=== PATIENT | male | born 1965 | race Caucasian/White ===

== ENCOUNTER 2021-11-11 09:48 | Emergency (ER) | payer OTHER, SELFPAY ==
--- NOTE | ~2021-11-11 | XR_ITS ---
EXAMINATION: XR ankle LT min 3V DATE: 11/11/2021 10:22 INDICATION: Medial sided pain and swelling at the left ankle TECHNIQUE: Anteroposterior, oblique, mortise, and lateral views of the left ankle were obtained. COMPARISON: None. FINDINGS: Alignment is normal. No fracture. Mild osteoarthritis. With mild nonuniform joint space narrowing at the right ankle. Achilles and plantar calcaneal spurs and small amount of enthesopathic ossification at the distal Achilles tendon. Small erosion with corticated margins at the tip of the lateral malleo christopher. Soft tissues are unremarkable with no evident ankle joint effusion. IMPRESSION: 1. Mild osteoarthritis at the left ankle. No acute osseous abnormality. 2. Enthesopathy at the calcaneal insertions of the Achilles tendon and plantar aponeurosis. 2. Small chronic nonspecific erosion with corticated margins at the tip of the lateral malleolus. Reviewed, dictated and finalized at location A.
[2021-11-11 10:07] VITALS: BP 149/87; PULSE 85; RESP 20; TEMP 36.6; O2SAT 95
--- NOTE | 2021-11-11 10:56 | ED.LOWEXIN ---
HPI - Extremity Injury (Lower) General Chief Complaint: Extremity Injury, Lower Stated Complaint: L foot pain Time Seen by Provider: 11/11/21 10:37 Source: patient Mode of arrival: ambulatory Limitations: no limitations History of Present Illness HPI Narrative: 56-year-old male presents today with complaints of left ankle pain that started after a birdbath fell on it yesterday. Abrasion noted to right lateral ankle. Patient with full range of motion. Patient able to bear weight. Patient noticed some numbness this morning while he had his boots on which is what prompted him to come in today. Related Data Allergies Allergy/AdvReac Type Severity Reaction Status Date / Time No Known Allergies Allergy Unknown Verified 03/05/19 23:03 Review of Systems Review of Systems: CONSTITUTIONAL: Denies fever, chills, or sweats. EYES: Denies visual changes, redness, or discharge. ENT: Denies rhinorrhea, congestion, sore throat, or otalgia. CARDIOVASCULAR: Denies chest pain, palpitations, or edema. RESPIRATORY: Denies cough or dyspnea. GASTROINTESTINAL: Denies abdominal pain, nausea, vomiting, or diarrhea. GENITOURINARY: Denies dysuria or hematuria. SKIN: Denies rash or itching. MUSCULOSKELETAL: Left ankle pain with some numbness and tingling this morning with boots on. Denies back pain or myalgia. NEUROLOGIC: Denies headache, numbness, dizziness, or weakness. PSYCHIATRIC: Denies anxiety or depression. Exam Narrative: GENERAL: Well-appearing, well-nourished, and in no acute distress. HEAD: Normocephalic, atraumatic. EYES: PERRLA and EOMI. ENT: Nares clear, no rhinorrhea or epistaxis. Mucous membranes moist. Oropharynx without tonsillar hypertrophy exudate or other lesions. Bilateral TMs pearly madden nonbulging NECK: Supple. No adenopathy or masses. No carotid bruits or JVD CHEST: Clear to auscultation. No respiratory distress. No wheezes rales or rhonchi HEART: Regular rate and rhythm. No murmur heard. Normal peripheral pulses. ABDOMEN: Soft, nontender, nondistended, normal active bowel sounds. EXTREMITIES: Left lateral ankle abrasion with tenderness to palpation. Patient with full range of motion. No laxity noted. No edema. SKIN: Warm, dry, no rash. NEURO: No focal deficits. Alert and oriented x3. PSYCH: Normal mood and affect. Course Vital Signs Vital signs: Vital Signs Temperature 36.6 C 11/11/21 10:07 Pulse Rate 85 11/11/21 10:07 Respiratory Rate 20 11/11/21 10:07 Blood Pressure 149/87 H 11/11/21 10:07 Pulse Oximetry 95 11/11/21 10:07 Oxygen Delivery Room Air 11/11/21 10:07 Temperature 36.6 C 11/11/21 10:07 Pulse Rate 85 11/11/21 10:07 Respiratory Rate 20 11/11/21 10:07 Blood Pressure 149/87 H 11/11/21 10:07 Pulse Oximetry 95 11/11/21 10:07 Oxygen Delivery Room Air 11/11/21 10:07 MDM - Extremity Injury (Lower) Differential Diagnosis Differential diagnosis: Likely ankle sprain and strain and ankle fracture Medical Records Attestation: I reviewed the patient's medical records. Imaging Data Attestation: I personally reviewed and interpreted this imaging study as follows: Radiologist's impression: Impressions Ankle X-Ray 11/11/21 10:23 IMPRESSION: 1. Mild osteoarthritis at the left ankle. No acute osseous abnormality. 2. Enthesopathy at the calcaneal insertions of the Achilles tendon and plantar aponeurosis. 2. Small chronic nonspecific erosion with corticated margins at the tip of the lateral malleolus. Discharge Plan Discharge Clinical Impression: Ankle sprain and strain, Osteoarthritis of ankle, left Patient Disposition: Home, Self-Care Condition: Stable Instructions: Antibiotic Form, Ankle Sprain (DC) Additional Instructions: May use Tylenol or ibuprofen as needed for pain. Ice and elevate extremity as needed Follow-up with primary if pain persist at 1 week. Follow-up/Referrals: Garfield,MD Dick [Primary Care Provider] - Time of
== END 2021-11-11 11:07 | disposition home or self-care (01) ==
LOC: ANHED 11:05
PROVIDERS: Emergency Provider Nurse Practitioner Family; PCP Internal Medicine
DX: S93.402A Sprain of unspecified ligament of left ankle, initial encounter (principal); M19.072 Primary osteoarthritis, left ankle and foot; W20.8XXA Other cause of strike by thrown, projected or falling object, initial encounter
CPT/HCPCS: 73610; 99283

== ENCOUNTER 2023-11-30 11:26 | Outpatient (CLI) | payer OTHER, SELFPAY ==
--- NOTE | ~2023-11-30 | XR_ITS ---
[id number] Ordering provider: Dick Merrill, History: . PAIN IN RIGHT KNEE . Comparison: None. FINDINGS: BONES: No acute fracture or dislocation. JOINT SPACES: Normal. SOFT TISSUES: Normal. IMPRESSION: No acute osseous abnormality right knee. Reviewed, dictated and finalized at location A.
== END 2023-11-30 11:27 ==
PROVIDERS: PCP Internal Medicine; Visit Provider Internal Medicine
DX: M25.561 Pain in right knee (principal)
CPT/HCPCS: 73560

== ENCOUNTER 2023-12-07 15:54 | Outpatient (CLI) | payer OTHER, SELFPAY ==
--- NOTE | ~2023-12-07 | MR_ITS ---
EXAMINATION: MR knee RT wo con DATE: 12/07/2023 16:30 INDICATION: Right knee pain TECHNIQUE: Magnetic resonance imaging (MRI) of the right knee was performed without intravenous contr ast. Sequences included coronal PD-weighted FSE, coronal PD-weighted FS FSE, sagittal T2-weighted FS E, sagittal PD-weighted FS FSE and axial PD weighted fat saturated FSE. COMPARISON: None. FINDINGS: Medial compartment: Longitudinal horizontal tear extending obliquely to the inferior articular surface at the peripheral third of the medial side of the anterior horn and anterior portion of the body of the medial meniscus . The small portion of the meniscus peripheral to the tear plane is subluxed slightly caudal to the m edial rim of the medial tibial plateau. There is partial thickness chondral ulceration along the ante rior to central weightbearing medial femoral condyle which appears full or near full-thickness at the central weightbearing medial femoral condyle but with only minimal underlying subarticular edema-lik e signal change. Shallow chondral ulceration along the anteromedial aspect of the medial tibial plate au. Lateral compartment: Lateral meniscus is normal. Small regions of partial-thickness chondral fissuring without degenerativ e subchondral changes at the central weightbearing lateral femoral condyle and at the posterior aspec t of the lateral tibial plateau. Patellofemoral compartment: Deep chondral ulceration with prominent central osteophyte at the junction of the inferomedial aspect of the medial trochlea and the anteriormost cartilage of the weightbearing medial femoral condyle. D eep chondral fissuring with additional small central subchondral osteophyte at the cephalad aspect of the medial trochlea. Partial-thickness chondral ulceration and fissuring at the central aspect of th e medial trochlea which in places involves greater than 50% of the cartilage thickness. Ligaments and tendons: Anterior and posterior cruciate ligaments are normal. The fibular collateral ligament complex is norm al. There is mild thickening and increased signal of the medial collateral ligament without significa nt surrounding edema at the level of the joint line consistent with moderate grade sprain/partial tea r which is most likely chronic. Small enthesophytes and mild tendinopathy at the patellar insertion o f the distal quadriceps tendon. The patellar tendon is normal. The visualized medial and lateral hams tring tendons as well as the iliotibial band are normal. Fluid: Small knee joint effusion at the suprapatellar pouch. Small Albert's cyst. No loose osteochondral bodi es identified. Osseous/other: There is additional mild to moderate osteoarthritis at the proximal tibiofibular articulation with mi ld subarticular edema-like and cystlike changes at the proximal head of the fibula. No fracture or pa thologic marrow replacing process. IMPRESSION: 1. Tear at the junction of the anterior horn and body of the medial meniscus. 2. 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 3. Additional mild to moderate osteoarthritis at the proximal tibiofibular articulation with mild sub articular edema-like and cystlike changes at the proximal head of the fibula. 4. Moderate grade sprain, likely chronic of the medial collateral ligament. Reviewed, dictated and finalized at location A. IMPRESSION: 1. Tear at the junction of the anterior horn and body of the medial meniscus. 2. Mild tricompartmental osteoarthritis with regions of high-grade chondromalac ia in the medial and patellofemoral compartments and moderate grade chondral ma lacia the lateral compartment. 3. Additional m
== END 2023-12-07 15:55 ==
LOC: MICIMG 15:55
PROVIDERS: PCP Internal Medicine; Visit Provider Internal Medicine
DX: S83.241A Other tear of medial meniscus, current injury, right knee, initial encounter (principal); M17.11 Unilateral primary osteoarthritis, right knee; M94.261 Chondromalacia, right knee; S83.8X1A Sprain of other specified parts of right knee, initial encounter; X58.XXXA Exposure to other specified factors, initial encounter
CPT/HCPCS: 73721

== ENCOUNTER 2024-10-17 15:29 | Inpatient (IN) | payer OTHER, SELFPAY ==
--- NOTE | ~2024-10-17 | CT_ITS ---
CLINICAL INDICATION: Insect bite to left hip. COMPARISON: None. TECHNIQUE: Computed tomography (CT) of the pelvis was performed following the administration of 100 m L of Omnipaque 350 intravenous contrast. The dose-length product was 722.60 mGy-cm. FINDINGS/OBSERVATIONS: Dermal thickening and induration is identified over the left hip, presumably the area of clinical con cern. No rim-enhancing fluid collection is identified. Multiple pathologically enlarged lymph nodes are identified within the left inguinal region, the larg est measuring 17 mm in short axis dimension. No abnormality is detected within the underlying musculature. The bladder is minimally distended, and otherwise unremarkable. Bowel loops are decompressed. Colonic diverticulosis is noted. The prostate gland is not enlarged. IMPRESSION: No rim-enhancing fluid collection within the area of clinical concern. No abnormality within the unde rlying musculature or deep soft tissues Reviewed, dictated and finalized at location A. IMPRESSION: No rim-enhancing fluid collection within the area of clinical concern. No abnor mality within the underlying musculature or deep soft tissues
--- OUTSIDE RECORDS SUMMARY | 2024-10-17 15:32 | XMS_ITS | Data Portability ---
Author Organization [facility] [employer], Main Office Address [address] [place] [address] Care Team Providers Care Shipping Assistant Name Role Phone TODD MERRILL Primary Care Provider [phone] TODD MERRILL Referring Provider Assessment Encounter Date Assessment Date Assessment LastModified by Organization Details LastModified Time 12/29/2022 12/29/2022 Blood work ordered healthy lifestyle choices discussed coronary calcium scoring discussed I believe he is going to pursue that see back annually immunizations discussed Not available 12/30/2022 17:56:12 Plan of Treatment Reminders Order Date Submit Date Provider Last Modified By Organization Details Last Modified Time Details Appointments None recorded. Lab PSA, total, serum or plasma 2022 023 [facility] (Lab), [address] [place], [address], 4 11:26:49 lipid panel, serum 2022 023 [facility] (Lab), [address] [place], [address], 4 11:26:47 CMP, serum or plasma 2022 023 [facility] (Lab), [address] [place], [address], 4 11:26:48 CBC w/ auto diff 2022 023 [facility] (Lab), [address] [place], [address], 4 11:26:48 lipoprotein (A), serum 2022 023 [facility] (Lab), [address] [place], [address], 4 11:26:48 vitamin D, 25-hydroxy, total, serum 2022 023 [facility] (Lab), [address] [place], [address], 4 11:26:48 unlisted lab - high-sensit ivity CRP 2022 023 [facility] (Lab), [address] [place], [address], 4 11:26:49 Referral None recorded. Procedures None recorded. Surgeries None recorded. Imaging None recorded. Medication Orders sildenafil (pulmonary hypertensio n) 20 mg tablet 2022 023 [id number], [address] [place] [address], [id number], 3 13:05:02 Patient TargetsNo targets recorded. Patient InstructionsNo instructions recorded. Reason for Referral None Reported. Results Created Date Observation Date Name Description Value Unit Range Abnormal Flag Note LastModifiedBy Organization Detail LastModifiedTime 11/12/19 22 11/11/2021 XR, ankle No observ ation record ed. [id number] [facility] [address] [place] [address], [address], 07/30/2022 15:41:21 05/14/20 22 05/14/2022 MRI, knee, w/o contr ast [facility] [address] [place] [address] [phone] Patien t Name: REUBEN WASSERMANEL Access ion #: [id number] Sex: M : 1965 1 Locati on: MOP Attend ing Physic suma: FELECIA MERRILL Orderi ng Physic suma: FELECIA MERRILL Exam Date: 2021 3:39 PM Exam Name: MRI KNEE LT WO Admitt ing Diagno sis(es ): RADIOL OGY REPORT - FINAL EXAM: MRI KNEE LT WO HISTOR Y: pain left knee joint runnin g injury , acute onset of pain COMPAR ATUL: Radiog raph 2021 TECHNI QUE: Multip lanar multis equenc e noncon trast MR images of the left knee were perfor med. Axial: T2, Magallanes l: T1, PD, Fat Sep G, Sagita l: T2, PD, Fat Sep G, ACL chaser . FINDIN GS: Osseou s: Tricom partme ntal osteoa rthrit ic residu als noted. Mild chroni c reacti ve change s of the distal medial femur and medial proxim al tibia. Cartil age: Severe thinni ng medial ly latera lly and at the femora l patell ar Page 1 of 3 [facility] Access ion #: [id number] Sex: M : 1965 1 Exam Date: 2021 3:39 PM Exam Name: MRI KNEE LT WO Admitt ing Diagno sis(es ): joint compar tment. Joint space: There is a large etiolo gy indete rminat e joint effusi on. There are tiny osteoc hondra l densit ies within the joint effusi on. Ligame nts: The ACL, PCL, MCL, LCL, and the jodi ceps tendon are intact . There is a partia l tear at the patell ar attach ment of the medial retina culum. 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 Latera l menisc us:Att enuate d, intact . IMPRES GILBERT: 1. Eviden ce of a partia l-thic kness tear at the patell ar insert ion site of the medial retina culum. 2. Large joint effusi on. 3. Large chroni c appear ing degene rative type tear involv ing much of the medial menisc us. 4. Severe tricom partme ntal osteoa rthrit ic residu als with tricom partme ntal narrow ing and chondr omalac ia residu als. Create d and electr onical ly signed by: Eloy thomas MD Signed Date: 2021 6:01 PM (CT) Page 2 of 3 [facility] Pati t Name: KARTIK WASSERMAN Access ion #: [id number] Sex: M : 1965 1 Exam Date: 2021 3:39 PM Exam Name: MRI KNEE LT WO Admitt ing Diagno sis(es ): Dictat ed by: Eloy thomas MD DD: 2021 6:01 PM (CT) DT: 2021 6:01 PM (CT) Page 3 of 3 [id number] [facility] (Imaging) [address] [place], [address], 07/30/2022 15:41:21 05/14/20 22 05/14/2022 [facility] [address] [place] [address] [phone] Pati t Name: KARTIK WASSERMAN Access ion #: [id number] Sex: M : 1965 1 Locati on: RAD Attend ing Physic suma: FELECIA MERRILL Orderi Physic suma: FELECIA MERRILL Exam Date: 2021 1:48 PM Exam Name: XR KNEE LT 3V Admitt ing Diagno sis(es ): RADIOL OGY REPORT - FINAL EXAM: XR KNEE LT 3V HISTOR Y: UNSPEC IFIED INJURY LT LOWER LEG pain COMPAR ATUL: None. TECHNI QUE: Three views of the left knee were perfor med. FINDIN GS: No acute fractu re or perios teal reacti on. Modera te to severe medial compar tment narrow ing. Tricom partme ntal osteoa rthrit ic residu als noted. There is a large joint effusi on. IMPRES GILBERT: There is a large joint effusi on. Page 1 of 2 [facility] Denise t Name: KARTIK WASSERMAN ion #: [id number] Sex: M : 1965 1 Exam Date: 2021 1:48 PM Exam Name: XR KNEE LT 3V Admitt ing Diagno sis(es ): Create d and electr onical ly signed by: Eloy thomas MD Signed Date: 2021 2:31 PM (CT) Dictat ed by: Eloy thomas MD DD: 2021 2:31 PM (CT) DT: 2021 2:31 PM (CT) Page 2 of 2 [id number] [facility] (Imaging) [address] [place], [address], 07/30/2022 15:41:21 12/09/19 24 12/07/2023 MRI, knee, w/o contr ast No observ ation record ed. [email or web address] [facility] [address], [place], [address], 12/13/2023 10:57:04 Result Notes None recorded. 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 Procedures Surgical History Date Name Laterality Status Provider Name and Address Organization Details Recorded Time 7 Rerepair ing hernia reduce completed Not Available [facility] 07/30/2022 15:40:16 7 Hernia Repair completed Not Available [facility] 2022 15:40:16 2 Hernia Repair completed Not Available [facility] 2022 15:40:16 Imaging Results Imaging Date Name Status LastModified by Organiz ation Details LastModified Time 05/14/2022 MRI, knee, w/o contrast completed [id number] [facility] (Imaging) [address] [place], [address], 07/30/2022 15:41:21 05/14/2022 XR, knee completed [id number] [facility] (Imaging) [address] [place], [address], 07/30/2022 15:41:21 11/11/2021 XR, ankle completed [id number] 026 [facility] [address], [place], [address], 07/30/2022 15:41:21 12/07/2023 MRI, knee, w/o contrast completed [email or web address] [facility] [address], [place], [address], 12/13/2023 10:57:04 Procedure Notes None recorded. Medical Equipment None Reported. Allergies No known drug allergies Medications Name Sig Start Date Stop Date Status Note LastModified by Organization Details LastModified Time celecoxib 200 mg capsule Take 1 capsule every day by oral route. 12/29 completed Not Available Not Available Not Available hydrocodone 5 mg-acetamin ophen 325 mg tablet 06/30 completed Not Available Not Available Not Available ondansetron HCl 8 mg tablet Take 1 tablet 3 times a day by oral route as needed. 07/22 completed Not Available Not Available Not Available prednisone 20 mg tablet Take 2 tablets every day by oral route for 7 days. active Not Available Not Available No t Available doxycycline hyclate 50 mg capsule TAKE 1 CAPSULE BY MOUTH TWICE DAILY active Not Available Not Available No t Available diphenoxyla te-atropine 2.5 mg-0.025 mg tablet TAKE 1 TABLET BY MOUTH TWICE DAILY DIRECTED 11/27 completed Not Available Not Available Not Available metronidazo le 500 mg tablet TK 1 T PO TID FOR 7 DAYS 11/18 completed Not Available Not Available Not Available ciprofloxac in 500 mg tablet TK 1 T PO BID FOR 7 DAYS 11/18 completed Not Available Not Available Not Available hydrocodone 10 mg-acetamin ophen 325 mg tablet Take 1 tablet twice a day by oral route as needed. 12/29 completed Not Available Not Available Not Available sildenafil 100 mg tablet TAKE 1 TABLET BY MOUTH DAILY NEEDED ONE HOUR BEFORE SEX, NOT MORE THAN ONCE PER DAY. 11/22 completed Not Available Not Available Not Available ketorolac 10 mg tablet 06/30 completed Not Available Not Available Not Available oxycodone-a cetaminophe n 5 mg-325 mg tablet 08/06 completed Not Available Not Available Not Available pantoprazol e 40 mg tablet,kamaljit yed release TAKE 1 TABLET BY MOUTH EVERY DAYneed s appt in November active Not Available Not Available No t Available doxycycline hyclate 100 mg tablet Take 1 tablet twice a day by oral route. 12/29 completed Not Available Not Available Not Available neomycin 3.5 mg/g-polymy yuliana B 10,000 unit/g-dexa meth 0.1 % eye oint APPLY THIN LAYER TO THE EYELID TWICE DAILY active Not Available Not Available No t Available sildenafil (pulmonary hypertensio n) 20 mg tablet TAKE 5 TABLETS BY MOUTH EVERY DAY 1 HOUR BEFORE SEXUAL ACTIVITY NEEDED. MAX 5 TABLETS DAILY 2022 active Not Available Not Available Not Avai lable Suprep Bowel Prep Kit 17.5 gram-3.13 gram-1.6 gram oral solution 02/12 completed Not Available Not Available Not Available ropivacaine (PF) 5 mg/mL (0.5 %) injection solution In office injection administe red by the provider 05/22 completed Not Available Not Available Not Available Afluria Quad (PF) 60 mcg (15 mcg x 4)/0.5 mL IM syringe ADM 0.5ML IM UTD 07/22 completed Not Available Not Available Not Available Flucelvax Quad (PF) 60 mcg (15 mcg x 4)/0.5 mL IM syringe ADM 0.5ML IM UTD 06/30 completed Not Available Not Available Not Available Vitals Date Recorded Body mass index (BMI) Body height Heart rate Body temperature Body weight Systolic blood pressure Diastolic blood pressure Provider Name and Address Organization Details Last Updated DateTime 2 28.3 kg/m2 177.8 cm 76 /min 96.4 [degF] 72422.7 g 124 mm[Hg] 70 mm[Hg] Not Available [facility] 3 15:40:23 Date Recorded Body mass index (BMI) Body height Heart rate Body temperature Body weight Systolic blood pressure Diastolic blood pressure Provider Name and Address Organization Details Last Updated DateTime 2 27.4 kg/m2 177.8 cm 78 /min 98 [degF] 29798.1 4 g 144 mm[Hg] 90 mm[Hg] Not Available [facility] 3 15:40:23 Date Recorded Body height Provider Name an d Address Organization Details Last Updated DateTime 05/16/2022 177.8 cm Not Available [facility] 3 15:40:24 Date Recorded Body height Provider Name an d Address Organization Details Last Updated DateTime 05/22/2022 177.8 cm Not Available [facility] 3 15:40:24 Date Recorded Body height Body mass index (BMI) Body weight Body temperature Heart rate Systolic blood pressure Diastolic blood pressure Provider Name and Address Organization Details Last Updated DateTime 3 177.8 cm 27 kg/m2 11598.3 7 g 98.1 [degF] 66 /min 132 mm[Hg] 86 mm[Hg] TARYN Rueda - [facility] 3 11:09:05 Social History Question Answer Notes LastModified by Organizat ion Details LastModified Time Tobacco Smoking Status Never Smoker Not Available [facility] 07/30/2022 15:40:11 Do You Have An Advance Directive? No [id number] Information not available 07/30/2022 What Is Your Level Of Caffeine Consumption? Moderate MIGRATION.94022 83116 Information not available 07/30/2022 How Much Tobacco Do You Chew? None MIGRATION.37173 26421 Information not available 07/30/2022 In The 14 Days Before Symptom Onset, Have You Had Close Contact With A Laboratory-confir med COVID-19 While That Case Was Ill? No MIGRATION.47440 44040 Information not available 07/30/2022 In The 14 Days Before Symptom Onset, Have You Had Close Contact With A Person Who Is Under Investigation For COVID-19 While That Person Was Ill? No MIGRATION.69394 80958 Information not available 07/30/2022 What Type Of Diet Are You Following? GLUTENFREE MIGRATION.65694 24302 Information not available 07/30/2022 Which Illicit Or Recreational Drugs Have You Used? None MIGRATION.50063 63444 Information not available 07/30/2022 Have There Been Any Changes To Your Family Or Social Situation? No MIGRATION.76904 15843 Information not available 07/30/2022 What Is The Fluoride Status Of Your Home? Fluoridated MIGRATION.12411 09175 Information not available 07/30/2022 Are There Any Guns Present In Your Home? No MIGRATION.12601 33116 Information not available 07/30/2022 Do You Use Insect Repellent Routinely? Yes MIGRATION.12744 64619 Information not available 07/30/2022 Where Do You Live? [place]House MIGRATION.35978 76449 Information not available 07/30/2022 What Was The Date Of Your Most Recent Tobacco Screening? 12/29/2022 [email or web address] Information not available 12/29/2022 Do You Have Any Pets? Yes MIGRATION.23851 10942 Information not available 07/30/2022 What Is Your Relationship Status? MIGRATION.71389 26207 Information not available 07/30/2022 Do You Have Smoke And Carbon Monoxide Detectors In Your Home? Yes MIGRATION.71728 66321 Information not available 07/30/2022 Are You Passively Exposed To Smoke? No MIGRATION.19237 16657 Information not available 07/30/2022 Are There Any Smokers In Your House? No MIGRATION.90168 28400 Information not available 07/30/2022 How Much Tobacco Do You Smoke? No MIGRATION.33188 16583 Information not available 07/30/2022 Do You Use Sunscreen Routinely? Yes MIGRATION.32328 61179 Information not available 07/30/2022 Sex: Unknown Functional Status Question Answer Note LastModified by Organizat ion Details LastModified Time What is your level of alcohol consumption? Moderate MIGRATION.[id number] 026 Information not available 07/30/2022 Do you or have you ever used smokeless tobacco? Never used smokeless tobacco MIGRATION.2174605 026 Information not available 07/30/2022 What is your occupation? [employer] MIGRATION.3453610 026 Information not available 07/30/2022 Do you or have you ever used e-cigarettes or vape? Never used electronic cigarettes MIGRATION.1779153 026 Information not available 07/30/2022 What is your exercise level? Moderate MIGRATION.6058829 026 Information not available 07/30/2022 Mental Status Question Answer Note LastModified by Organizat ion Details LastModified Time Do you feel stressed (tense, restless, nervous, or anxious, or unable to sleep at night)? [id number] MIGRATION.[id number] 6 Information not available 07/30/2022 Family History Relationship Description Onset Age of this Age Resolved Age Notes LastModified by Organization Details LastModified Time Father Diabetes mellitus [id number] [id number] Not available 07/30/2022 15:40:16 Father Heart disease MIGRATION.287 [id number] Not available 07/30/2022 15:40:16 Father Pulmonary emphysema MIGRATION.081 [id number] Not available 07/30/2022 15:40:16 Brother Diverticular disease MIGRATION.113 [id number] Not available 07/30/2022 15:40:16 Brother Heart disease MIGRATION.227 [id number] Not available 07/30/2022 15:40:16 Mother Diabetes mellitus MIGRATION.929 [id number] Not available 07/30/2022 15:40:16 Mother Malignant tumor of breast MIGRATION.362 [id number] Not available 07/30/2022 15:40:16 Medical History Condition Response BLINDNESS N KIDNEY STONES N CARPAL TUNNEL SYNDROME N MRSA N LUNG DISEASE/DISORDER N HISTORY OF DRUG ABUSE N RADIATION / CHEMOTHERAPY N COPD N ANKLE PAIN N SPORTS INJURY N BLOOD DISEASES N SCHIZOPHRENIA N DEPRESSION (INCLUDING POST ) N SHOULDER PAIN N BOWEL PROBLEMS N STROKE/TIA N KNEE PAIN N ULCERS N BENIGN PROSTATIC HYPERPLASIA N OBESITY N GERD/NAUSEA N ANEURYSM N URINARY/BLADDER/KIDNEY PROBLEMS N CORONARY ARTERY DISEASE (CAD) N ADDICTION CONCERNS N USE OF BLOOD THINNERS N SKIN PROBLEMS N EMPHYSEMA N MUSCLE,JOINT OR BONE PROBLEMS N DVT N STOMACH ULCERS N BLOOD CLOTS N USE OF NSAIDS N CONCUSSION OR SPINAL TRAUMA N NEUROPATHY N AIDS/HIV N FRACTURES N ELBOW PAIN N HYPERTENSION N TOURETTE'S N ANXIETY DISORDER N Metal allergy N BLOOD TRANSFUSION N ANEMIA/BLOOD DISORDER N BIPOLAR DISORDER N BRONCHITIS N OSTEOARTHRITIS N TUBERCULOSIS N FOOT PROBLEM N HEART VALVE DISORDERS N ALLERGIES/HAYFEVER N SOFT TISSUE INJURY N INFECTIOUS DISEASE N HEART ARRHYTHMIA N INSOMNIA N RHEUMATOID ARTHRITIS N HIGH CHOLESTEROL / HYPERLIPIDEMIA N EDEMA N CHRONIC PAIN SYNDROME N CAROTID BLOCKAGE N BACK / NECK PROBLEMS Y HAVE YOU BEEN HOSPITALIZED OR SEEN IN [facility] IN THE PAST YEAR ? N BURSITIS N HERNIATED DISC N DIALYSIS N FIBROMYALGIA N OSTEOPOROSIS N ARTHRITIS N NO SIGNIFICANT PAST MEDICAL HISTORY N PERIPHERAL NEUROPATHY N DIABETES, TYPE N HEARTBURN / REFLUX N HEPATITIS / LIVER DISEASE N GOUT N SLEEP DISORDER Y ALZHEIMER'S DISEASE N HERPES N HEADACHES/MIGRAINES N SEIZURES/EPILEPSY N VASCULAR DISEASE N HIP PAIN N Blood Disorder N DIZZINESS N HEAD TRAUMA OR INJURY N HEART DISEASE/HEART PROBLEMS N MULTIPLE SCLEROSIS N CANCER: SPECIFY N CARDIAC ARRHYTHMIA N ANESTHESIA COMPLICATIONS N ATRIAL FIBRILLATION N AUTOIMMUNE DISEASE N Immunizations Vaccine Type Date Status Note Provider Nam e and Address Organization Details Recorded Time influenza, unspecified formulation 3 completed TARYN [facility] 05/18/2023 09:22:23 COVID-19, mRNA, LNP-S, PF, 100 mcg/0.5mL dose or 50 mcg/0.25mL dose 3 completed TARYN [facility] 05/18/2023 09:22:34 Influenza, split virus, trivalent, preservative 0 completed Not Available [facility] 07/30/2022 15:41:19 Influenza, split virus, trivalent, preservative 9 completed Not Available [facility] 07/30/2022 15:41:19 Influenza, split virus, quadrivalent, PF 2 completed Not Available [facility] 07/30/2022 15:41:19 Past Encounters Encounter ID Performer Location Encounter Start Date Encounter Closed Date Diagnosis/Indication Diagnosis SNOMED-CT Code Diagnosis ICD10 Code Diagnosis Note [id number] Todd Merrill MD [facility] Internal Med [facility] [address] [facility] [address] [address] 11/22/2020 00:00:00 11/23/2020 21:26:04 [id number] Todd Merrill MD [facility] Internal Med [facility] [address] [facility] [address] [address] 11/27/2021 00:00:00 12/10/2021 23:24:34 [id number] Todd Merrill MD [facility] Internal Med [facility] [address] [facility] [address] [address] 05/14/2022 00:00:00 05/16/2022 22:08:32 [id number] Bertrand Vegas MD [facility] [place] [address] 05/16/2022 00:00:00 05/17/2022 19:07:00 [id number] Bertrand Vegas MD [facility] [address] [place] [address] 05/22/2022 00:00:00 05/29/2022 15:35:53 [id number] Todd Merrill MD [facility] Internal Med [facility] [address] [facility] [address] [address] 12/29/2022 10:57:03 12/29/2022 12:13:23 Adult health examination 596700971 Z00.00 Screening for malignant neoplasm of prostate 609858213 Z12.5 Renewal of prescription 999739745 Z76.0 Health Concerns Section Related Observation LastModified by Organization Detai ls LastModified Time None Recorded Concern Status LastModified by Organization Details LastModified Time None Recorded Advance Directives Directive N: Payers Encounter Date Sequence Insurance Name Policy Number Policy Acosta Covered Member ID Acosta Member ID Guarantor Name 12/29/2022 1 [facility] [id number] Kartik Lainez [id number] Kartik Lainez Notes Date Note Type Note Provider Name and Address Organization Details Recorded Time 12/29/2022 text/html interval history mother of congestive heart failure but he has been actually feeling pretty good Todd Merrill MD [address] [place] [address], [facility] [address], [place], [address], [facility] 12/30/2022 17:56:30
--- OUTSIDE RECORDS SUMMARY | 2024-10-17 15:32 | XMS_ITS | CONTINUITY OF CARE DOCUMENT ---
Author Name chuck woods Address Unknown Organization [facility] Address [address] [place] [address] Phone [phone] Care Team Providers Care Care Program Director Name Role Phone Arias Casas MD, Celestine Purdy Unavailable [phone] Dick Merrill DO Unavailable Dick Merrill DO Unavailable PROBLEMS Condition Status Date Provider Notes Cardiovascular screening active Jessica Montoya rd INSURANCE PROVIDERS Payer name Policy type / Coverage type Akiko red democrat ID SELF PAY TREATMENT PLAN Date Name CT, Coronary Calcium Score
--- OUTSIDE RECORDS SUMMARY | 2024-10-17 15:32 | XMS_ITS | Clinical Summary ---
Author Organization [facility] Address [address] [place] [phone] Care Team Providers Care Hydramatic Mechanic Name Role Phone Dikc Merrill MD Primary Care Provider + [phone] Allergies No known active allergies Medications multivit-mineral s/folic acid (MULTIVITAMIN GUMMIES ORAL)Indications :supplement Take 2 tablets by mouth every morning Active prednisoLONE acetate (PRED FORTE) 1 % ophthalmic suspensionIndica tions:Status post cataract extraction and insertion of intraocular lens of left eye Administer 1 drop into the left eye 4 (four) times a day START DROP AFTER SURGERY. BRING DROP TO SURGICAL PROCEDURE 10 mL 3 Active Additional Information Patient not taking.Informant: Self, Reported on 05/06/2024 ascorbic acid (VITAMIN C ORAL)Indications :supplement Take 1,000 mg by mouth every morning Active cholecalciferol, vitamin D3, (VITAMIN D3 ORAL)Indications :supplement Take 25 mcg by mouth every morning Active phenylephrine (SUDAFED PE) 10 mg tabletIndication s:Nasal Congestion Take 1 tablet (10 mg total) by mouth as needed for congestion Active ofloxacin (OCUFLOX) 0.3 % ophthalmic solution Administer 1 drop into the left eye 4 (four) times a day START DROP AFTER SURGERY. BRING DROP TO SURGICAL PROCEDURE 5 mL 2 Active Additional Information Patient not taking.Reported on 05/06/2024 dorzolamide-edmar loL (Cosopt) 22.3-6.8 mg/mL ophthalmic solution Administer 1 drop into the left eye 2 (two) times a day 10 mL 1 4 Active Additional Information Patient not taking.Reported on 05/06/2024 ketorolac (ACULAR) 0.5 % ophthalmic solution Administer 1 drop into the left eye 4 (four) times a day 5 mL 2 5 Active Additional Information Patient not taking.Reported on 09/28/2024 testosterone cypionate (DEPO-TESTOTERON E) 200 mg/mL injection ADMINISTER 2 ML IN THE MUSCLE EVERY WEEK 5 Active Active Problems Problem Noted Date Diagnosed Date 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 No evidence of intraocular inflammation . Attached 360. Preretinal hemorrhage of left eye 11/11/2023 Cystoid macular edema of left eye 11/11/2023 Visual disturbance, left eye 08/25/2023 Assessment & Plan (08/25/2023 9:32 AM CDT): Retina flat and intact 360. Re-assured patient. RTC with any acute changed. Cont Ibuprofen as needed for pain management. Follow up with Dr. Mccoy as scheduled in September. Left retinal detachment 06/24/2023 Assessment & Plan (2023 5:09 PM MANAGER OF MARKETING): One day status post scleral buckling procedure (SB)/pars plana vitrectomy (PPV)/endolaser (EL)/14% C3F8 to the left eye. Doing well. Shield operated eye, Tobramycin 4x/day, and Predforte 4x/day Return to clinic in one week. Signs and symptoms of retinal detachment, tears and endophthalmitis, elevated pressure reviewed with patient. Post Op Position:Face Down. Altitude precautions were reviewed with patient. No strenuous activity. Assessment & Plan (06/24/2023 2:58 PM MANAGER OF MARKETING): Chronic with proliferative vitreoretinopathy (PVR). Discussed guarded prognosis given chronicity and potential for recurrent detachment. Discussed R/B/A of pars plana vitrectomy (PPV)/SBP and patient wishes to proceed. Choroidal nevus of right eye 06/24/2023 Assessment & Plan (06/24/2023 3:02 PM MANAGER OF MARKETING): Small, flat inferior to disc. 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 Overview (03/11/2024): 01/2011 CT Right 1.2 cm Rosacea 05/21/2011 Hemorrhoids 06/15/2009 Encounters Date Type Department Care Team Description 09/28/2024 9:00 AM CDT Office Visit [facility] Op[facility] [address] [phone] Allie Mccoy MD PhD Cystoid macular edema of left eye (Primary Dx) 08/17/2024 8:15 AM CDT Office Visit [facility]hthalmology [address] [facility] [address] [place] [phone] Allie Mccoy MD PhD Cystoid macular edema of left eye (Primary Dx) from Last 3 Months Surgical History Surgery Date Site/Laterality Comments DISTAL BICEPS TENDON REPAIR 11/29/2018 Right COLONOSCOPY 06/01/2016 - 05/31/2017 INGUINAL HERNIA REPAIR Years ago/ can't recall date VITRECTOMY 07/10/2023 Left CATARACT EXTRACTION 03/31/2024 Left Medical History Medical History Date Comments Retinal detachment 07/2023 left eye Cataract left eye Family History Medical History Relation Name Comments Anesthesia problems Neg Hx Social History Tobacco Use Types Packs/Day Years Used Date Smoking Tobacco: Never Passive Smoke Exposure: Past Smokeless Tobacco: Never Passive Exposure Comments:Da d smoked AUDIT-C Answer Date Recorded Q1: How often do you have a drink containing alc ohol? 2-4 times a month 03/31/2024 Q2: How many drinks containi ng alcohol do you have on a typical day when you are drinking? 1 or 2 03/31/2024 Q3: How often do you have si x or more drinks on one occasion? Never 03/31/2024 Personal Safety Answer Date Recorded Have you ever been in or are you currently in a harmful physical or emotional relationship or is someone making you feel afraid or unsafe? Denies 03/31/2024 Sex and Gender Information Value Date Recorded Sex Assigned at Not on file Legal Sex Male 2:59 PM CDT Gender Identity Male 06/27/2023 12:52 PM MANAGER OF MARKETING Sexual Orientation Straight 06/27/2023 12 :52 PM MANAGER OF MARKETING Obstetrics History Last Filed Vital Signs Vital Sign Reading Time Taken Comments Blood Pressure 110/73 03/31/2024 1:40 PM CDT Pulse 71 03/31/2024 1:40 PM CDT Temperature 36.5 C (97.7 F) 03/31/2024 1:05 PM CDT Respiratory Rate 20 03/31/2024 1:40 PM CDT Oxygen Saturation 94% 03/31/2024 1:40 PM CDT Inhaled Oxygen Concentration - - Weight 90.1 kg (198 lb 11.2 oz) 024 11:08 AM CDT Height 177.8 cm (5' 10 ) 03/31/2024 11: 08 AM CDT Body Mass Index 28.51 03/31/2024 11:08 AM CDT Plan of Treatment Health Maintenance Due Date Last Done Comments Depression Screening 1965 Hepatitis C Screening 1965 Prostate Cancer Screening-PSA 1963 DTaP/Tdap/Td Vaccine (1 - Tdap) 1974 Regular Well Visit/Exam 18-64 1981 Pneumococcal vaccine <65 (1 of 2 - PCV) 1982 Zoster Vaccine (1 of 2) 2013 Colon Cancer Screening-Colonoscopy 02/16/2027 02/16/2017 Colon Cancer Screening-CT Colonography Discontinued 02/16/2017 Colon Cancer Screening-DNA Stool Discontinued 02/17/20 17 Colon Cancer Screening-FIT Discontinued 02/16/2017 Colon Cancer Screening-Sigmoidoscopy Discontinued 02/16/2017 Influenza Vaccine Completed 03/01/2024, , 05/07/2022, Additional history exists Medical Devices Implanted Type Area Jitney Driver Device Identifier Shelf Expiration Date Model / Serial / Lot [employer] 125x2.5x.6mm Circling Band Scleral Silicone Sterile 92-02 - [id number] Implanted:Qty : 1 on 07/10/2023 by Allie Mccoy MD PhD at [facility] Other - see comments Left: Eye [employer] 11/29/2027 92-02 / / [id number] [employer] 2.1mm 1mm 30mm Band Secure Round Sleeve Retinal Silicone 92-13 - [id number] Implanted:Qty : 1 on 07/10/2023 by Allie Mccoy MD PhD at [facility] Other - see comments Left: Eye [employer] 05/31/2027 92-13 / / [id number] [employer] Lens Iol Tecnis Smplcty 1-Pc Clr [place] 15.0 Diopter [id number] - [id number] - [id number] Implanted:Qty : 1 on 03/31/2024 by Lyn Sandoval MD at [facility] Left: Eye [employer] [id number] 01/26/2026 [id number] / [id number] / Procedures Procedure Name Priority Date/Time Associated Diagnosis Comments OCT, RETINA - OU - BOTH EYES Routine 09/28/2024 9:36 AM CDT Cystoid macular edema of left eye SUB-TENON'S INJECTION - OS - LEFT EYE Routine 08/17/2024 9:52 AM CDT Cystoid macular edema of left eye OCT, RETINA - OU - BOTH EYES Routine 08/17/2024 8:43 AM CDT Cystoid macular edema of left eye COLONOSCOPY REPORT 02/16/2017 from Last 3 Months or Most Recently Relevant to Health Maintenance Results * OCT, Retina - OU - Both Eyes (09/28/2024 9:36 AM CDT) Anatomical Region Laterality Modality Head Optical Coherenc e Tomography Narrative 09/28/2024 9:36 AM CDT Left Eye Quality was good. Notes Right eye (OD): no cystoid macular edema (CME) Left eye (OS): resolved cystoid macular edema (CME) since prior us Allie Mccoy MD PhD OPHTH TOMOGRAPHY Fin al Result * Sub-Tenon's Injection - OS - Left Eye (08/17/2024 9:52 AM CDT) Anatomical Region Laterality Modality Head Other Narrative 08/17/2024 9:52 AM CDT Time Out Informed consent was obtained after all risks, benefits and alternatives were explained to the patient. The patient understood, agreed and wished to proceed. Timeout was completed verifying the patient, procedure, laterality and allergies. Anesthesia Topical anesthesia was used. Anesthetic medications included Proparacaine 0.5%. Sub-Tenon's Preparation included 5% betadine to ocular surface. A 27 gauge needle was used. Pharmaceutical Medication: 40 mg triamcinolone 40 mg/mL Route: intraocular, Site: Left Eye [facility]: 9224-6234-37, Lot: [id number], Expiration date: 05/31/2025, Waste: 0 mL Post-op Post injection exam found visual acuity of at least counting fingers. the patient tolerated the procedure. there were no complications during today's treatment. The patient received written and verbal post procedure care education. The attending physician was present for the entire procedure. Notes Pt signed consent for STK OS 08/17/24 us Allie Mccoy MD PhD OPHTH CLINIC PROCEDU RES Final Result * OCT, Retina - OU - Both Eyes (08/17/2024 8:43 AM CDT) Anatomical Region Laterality Modality Head Optical Coherenc e Tomography Narrative 08/17/2024 8:43 AM CDT Left Eye Quality was good. Notes Right eye (OD): no cystoid macular edema (CME) Left eye (OS): increased mild cystoid macular edema (CME) since prior us Allie Mccoy MD PhD OPHTH TOMOGRAPHY Fin al Result * COLONOSCOPY REPORT (02/16/2017) Anatomical Region Laterality Modality Other us Provider Scanning GI PROCEDURE ORDERABLES Final Result from Last 3 Months or Most Recently Relevant to Health Maintenance Insurance [id number] [place] [id number] [facility] Address: [place] [address] [facility] [place] [address] [facility] Address: [facility] [address] [place] [address] Care Teams Hydramatic Mechanic Relationship Specialty Start Date End Date Dick Merrill MD PCP - General 02/16/17
--- OUTSIDE RECORDS SUMMARY | 2024-10-17 15:32 | XMS_ITS | Referral Summary ---
Author Organization [facility] Address [address] [place] [phone] Care Team Providers Care Traffic Routing Engineer Name Role Phone Dick Merrill MD Primary Care Provider Encounters Date Type Department Care Team Description 09/28/2024 9:00 AM CDT Office Visit [facility] Ophthalmology [address] [place] [phone] Allie Mccoy MD PhD Cystoid macular edema of left eye (Primary Dx) 08/17/2024 8:15 AM CDT Office Visit [facility] Ophthalmology [address] [place] [phone] Allie Mccoy MD PhD Cystoid macular edema of left eye (Primary Dx) from Last 3 Months Allergies No known active allergies Medications multivit-mineral [...] DROP TO SURGICAL PROCEDURE 5 mL 2 4 Active Additional Information Patient not taking.Reported [...] 06/24/2023 Assessment & Plan (2023 5:09 PM FLAKE OR SHRED ROLL OPERATOR): One day status post scleral buckling procedure [...] activity. Assessment & Plan (06/24/2023 2:58 PM FLAKE OR SHRED ROLL OPERATOR): Chronic with proliferative vitreoretinopathy (PVR). Discussed guarded prognosis given chronicity and potential for recurrent detachment. Discussed R/B/A of pars plana vitrectomy (PPV)/SBP and patient wishes to proceed. Choroidal nevus of right eye 06/24/2023 Assessment & Plan (06/24/2023 3:02 PM FLAKE OR SHRED ROLL OPERATOR): Small, flat inferior to disc. Monitor Hemarthrosis [...] Right 1.2 cm Rosacea 05/21/2011 Hemorrhoids 06/15/2009 Social History Tobacco Use Types Packs/Day Years Used Date Smoking Tobacco: Never Passive Smoke Exposure: Past Smokeless Tobacco: Never Passive Exposure Comments:Da caitlin smoked AUDIT-C Answer Date Recorded Q1: How [...] CDT Gender Identity Male 06/27/2023 12:52 PM FLAKE OR SHRED ROLL OPERATOR Sexual Orientation Straight 06/27/2023 12 :52 PM FLAKE OR SHRED ROLL OPERATOR Last Filed Vital Signs Vital Sign Reading [...] 03/31/2024 11:08 AM CDT Plan of Treatment Not on file Medical Devices Implanted Type Area Solid Waste Truck Driver Device Identifier Shelf Expiration Date Model / Serial / Lot [employer] Usa 125x2.5x.6mm Circling Band Scleral Silicone Sterile 92-02 - [id number] Implanted:Qty : 1 on 07/10/2023 by Allie Mccoy MD PhD at [facility] Other - see comments Left: Eye [employer] 11/29/2027 92-02 / / [id number] [employer] 2.1mm 1mm 30mm Band Secure Round Sleeve Retinal Silicone 92-13 - [id number] Implanted:Qty : 1 on 07/10/2023 by Allie Mccoy MD PhD at [facility] Other - see comments Left: Eye [employer] 05/31/2027 92-13 / / [id number] [employer] Lens Iol Tecnis Smplcty 1-Pc Clr [place] 15.0 Diopter [id number] - [id number] - [id number] Implanted:Qty : 1 on 03/31/2024 by Lyn Sandoval MD at [facility] Left: Eye [employer] [id number] 01/26/2026 [id number] / [id number] / Procedures Procedure Name Priority Date/Time [...] resolved cystoid macular edema (CME) since prior Allie Mccoy MD PhD OPHTH TOMOGRAPHY Fin [...] 40 mg/mL Route: intraocular, Site: Left Eye [place]: [id number], Lot: [id number], Expiration date: 05/31/2025, Waste: 0 mL Post-op Post injection exam found visual acuity of at least counting fingers. the patient tolerated the procedure. there were no complications during today's treatment. The patient received written and verbal post procedure care education. The attending physician was present for the entire procedure. Notes Pt signed consent for STK OS 08/17/24 Allie Mccoy MD PhD OPHTH CLINIC PROCEDU RES Final Result * OCT, Retina - OU - Both Eyes (08/17/2024 8:43 AM CDT) Anatomical Region Laterality Modality Head Optical Coherenc e Tomography Narrative 08/17/2024 8:43 AM CDT Left Eye Quality was good. Notes Right eye (OD): no cystoid macular edema (CME) Left eye (OS): increased mild cystoid macular edema (CME) since prior Allie Mccoy MD PhD OPHTH TOMOGRAPHY Fin al Result * COLONOSCOPY REPORT (02/16/2017) Anatomical Region Laterality Modality Other Provider Scanning GI PROCEDURE ORDERABLES Final Result from Last 3 Months or Most Recently Relevant to Health Maintenance Insurance [facility] Address: [place] [address] [facility]: [place] [address] [facility] Address: [place] [address] Care Teams Traffic Routing Engineer Relationship Specialty Start Date End Date iDck Merrill MD PCP - General 02/16/17
--- OUTSIDE RECORDS SUMMARY | 2024-10-17 15:32 | XMS_ITS | Data Portability ---
Author Organization [facility] [address] [place] [address] Care Team Providers Care Director Sales And Trade Marketing Name Role Phone DICK MERRILL Primary Care Provider Assessment No assessment recorded. Plan of Treatment Reminders Order Date Submit Date Provider Last Modified By Organization Details Last Modified Time Details Appointments ACUTE 15 2024 02:30P M Dick Merrill MD Not available Not available Not available Lab None recorded. Referral None recorded. Procedures None recorded. Surgeries None recorded. Imaging None recorded. Medication Orders testoster one cypionate 200 mg/mL intramusc ular oil 2024 025 [id number], [address], [id number], 09/26/2024 13:12:33 testoster one cypionate 200 mg/mL intramusc ular oil 2024 025 [email or web address] [facility] #[id number], [address], [id number], 09/19/2024 14:06:05 testoster one cypionate 200 mg/mL intramusc ular oil 2024 025 [facility] #[id number], [address], [id number], 09/12/2024 13:44:52 testoster one cypionate 200 mg/mL intramusc ular oil 2024 025 [facility] #[id number], [address], [place], [place], [id number], 09/05/2024 10:39:51 Patient TargetsNo targets recorded. Patient InstructionsNo instructions recorded. Reason for Referral None Reported. Results Created Date Observation Date Name Description Value Unit Range Abnormal Flag Note LastModifiedBy Organization Detail LastModifiedTime Result Notes None recorded. Problems Name Problem SNOMED Code Status Onset Date Resolution Date Notes Provider Name and Address Organization Details Recorded Time Prostate specific antigen above reference range 532171566 Active 2023 Luh Delacruz [place] null, [place] - [facility] 4 12:18:06 Pain of right knee joint 8952440020712 00 Active 2023 Luh Delacruz [place], [place] - [facility] 12:18:08 SARS-CoV-2 vaccination declined 5826597829 Active 2024 Dick Merrill MD Attn: Victoria gregg,[address] [facility], [place], [address] [place] [address] - [facility] 5 07:36:07 Testosteron e level below reference range 045371401 Active 2024 Luh Delacruz [place] null, [place] - [facility] 5 11:01:33 Problem Notes None recorded. Procedures Surgical History Date Name Laterality Status Provider Name and Address Organization Details Recorded Time repair of retina for retinal detachment completed TARYN Traore [place] - [facility] 11/30/2023 11:26:12 hernia repair completed TARYN Traore [place] [facility] 11/30/2023 11:25:28 Imaging Results None recorded. Procedure Notes None recorded. Medical Equipment None Reported. Allergies No known drug allergies Medications Name Sig Start Date Stop Date Status Note LastModified by Organization Details LastModified Time ofloxacin 0.3 % eye drops INSTILL 1 DROP IN LEFT EYE FOUR TIMES DAILY. START DROP AFTER SURGERY. BRING DROP TO SURGICAL PROCEDURE 2024 active Not Available Not Available Not Avai lable meloxicam 15 mg tablet TAKE 1 TABLET BY MOUTH DAILY 07/21 completed Not Available Not Available Not Available ketorolac 0.5 % eye drops INSTILL 1 DROP IN LEFT EYE FOUR TIMES DAILY active Not Available Not Available No t Available prednisolon e acetate 1 % eye drops,suspe nsion SHAKE LIQUID AND INSTILL 1 DROP IN LEFT EYE FOUR TIMES DAILY. START DROP AFTER SURGERY. BRING DROP TO SURGICAL PROCEDURE 2024 active Not Available Not Available Not Avai lable dorzolamide 22.3 mg-timolol 6.8 mg/mL eye drops INSTILL 1 DROP INTO LEFT EYE TWICE DAILY active Not Available Not Available No t Available testosteron e cypionate 200 mg/mL intramuscul ar oil ADMINISTE R 1.5 ML IN THE MUSCLE EVERY WEEK active Not Available Not Available No t Available Vitamin D2 1,250 mcg (50,000 unit) capsule Take 1 capsule every day by oral route. 08/18 completed Not Available Not Available Not Available sildenafil (pulmonary hypertensio n) 20 mg tablet TAKE 5 TABLETS BY MOUTH 1 HOUR BEFORE SEXUAL ACTIVITY. MAX 5 TABLETS A DAY active Not Available Not Available No t Available cholecalcif jay (vitamin D3) 1,250 mcg (50,000 unit) capsule TAKE 1 CAPSULE BY MOUTH ONCE WEEKLY active Not Available Not Available No t Available EpiPen 2-Rufus 0.3 mg/0.3 mL injection, auto-inject or Take 1 auto as needed by injection route. 2024 active Not Available Not Available Not Avai [email or web address] Vitals Date Recorded Body height Provider Name an d Address Organization Details Last Updated DateTime 09/26/2024 175.26 cm Adelina Gomez LPN [facility] 09/27/19 25 10:49:28 Date Recorded Body height Body mass index (BMI) Body weight Heart rate Oxygen saturation Oxygen saturation in Arterial blood by Pulse oximetry Systolic blood pressure Diastolic blood pressure Provider Name and Address Organization Details Last Updated DateTime 5 175.26 cm 30.6 kg/m2 79090.0 6 g 91 /min 98 % 98 % 134 mm[Hg] 68 mm[Hg] Brittany East MA [facility] 15:50:58 Social History Question Answer Notes LastModified by Organizat ion Details LastModified Time Tobacco Smoking Status Never Smoker Marleny Ford MA null, [place] - [facility] 07/21/2024 11:26:52 Are You Blind Or Do You Have Difficulty Seeing? No Information n ot available 07/21/2024 What Is Your Level Of Caffeine Consumption? Occasional Information not available 07/21/2024 In The 14 Days Before Symptom Onset, Have You Had Close Contact With A Laboratory-confirm ed COVID-19 While That Case Was Ill? No Information n ot available 07/21/2024 In The 14 Days Before Symptom Onset, Have You Had Close Contact With A Person Who Is Under Investigation For COVID-19 While That Person Was Ill? No Information not available 07/21/2024 Have You Been To An Area Known To Be High Risk For COVID-19? No Information not available 07/21/2024 Are You Deaf Or Do You Have Serious Difficulty Hearing? No Information not available 07/21/2024 What Was The Date Of Your Most Recent Tobacco Screening? 07/21/2024 Information not available 07/21/2024 Do You Use Your Seat Belt Or Car Seat Routinely? Yes Information not available 07/21/2024 Do You Have Smoke And Carbon Monoxide Detectors In Your Home? Yes Information not available 07/21/2024 Has Tobacco Cessation Counseling Been Provided? Yes Information not available 07/21/2024 On What Date Was Tobacco Cessation Counseling Provided? 07/21/2024 Information not available 07/21/2024 Sex: Unknown Functional Status Question Answer Note LastModified by Mixpo ion Details LastModified Time Do you use any illicit or recreational drugs? No Information not available 07/21/2024 Do you or have you ever used any other forms of tobacco or nicotine? No Information not available 07/21/2024 What is your level of alcohol consumption? Occasional Information not available 07/21/2024 Are you able to care for yourself? Yes Information n ot available 07/21/2024 Mental Status None recorded. Family History Relationship Description Onset Age of this Age Resolved Age Notes LastModified by Organization Details LastModified Time Mother Diabetes mellitus [email or web address] Not available 06/2023 11:24:51 Mother Family history of breast cancer [email or web address] Not available 06/2023 11:24:58 Mother Hypertensive disorder [email or web address] Not available 06/2023 11:25:07 Father Diabetes mellitus [email or web address] Not available 06/2023 11:24:51 Father Hypertensive disorder [email or web address] Not available 06/2023 11:25:07 Medical History No medical history recorded. Immunizations Vaccine Type Date Status Note Provider Nam e and Address Organization Details Recorded Time Influenza, MDCK, quadrivalent, PF 9 completed Cayla Patel RMA [place], [place] [facility] 11/30/2023 11:17:34 COVID-19, mRNA, LNP-S, PF, 30 mcg/0.3 mL dose 1 completed Cayla Patel R[place] [facility] 11/30/2023 11:17:34 COVID-19, mRNA, LNP-S, PF, 30 mcg/0.3 mL dose 1 completed Cayla Patel R[place] [facility] 11/30/2023 11:17:34 COVID-19, mRNA, LNP-S, PF, 50 mcg/0.5 mL 3 completed Cayla Patel R[place] [facility] 11/30/2023 11:17:34 Influenza, split virus, trivalent, preservative 4 completed Cayla Patel R[place] [facility] 11/30/2023 11:17:34 Influenza, split virus, trivalent, preservative 1 completed Cayla Patel R[place] [facility] 11/30/2023 11:17:34 Influenza, split virus, trivalent, preservative 3 completed Cayla Patel [place] [facility] 11/30/2023 11:17:34 Influenza, split virus, trivalent, PF 5 completed Cayla Pat[place] [facility] 11/30/2023 11:17:34 Influenza, split virus, quadrivalent, PF 8 completed Cayla Pat[place] [facility] 11/30/2023 11:17:34 Influenza, split virus, quadrivalent, PF 7 completed Cayla Pat[place] [facility] 11/30/2023 11:17:34 Influenza, split virus, quadrivalent, PF 0 completed Cayla Patel [place] [facility] 11/30/2023 11:17:34 Influenza, split virus, quadrivalent, PF 6 completed Cayla Pat[place] [facility] 11/30/2023 11:17:34 Influenza, split virus, quadrivalent, PF 2 completed Cayla Pat[place] [facility] 11/30/2023 11:17:34 Influenza, split virus, quadrivalent, PF 3 completed Cayla Pat[place] [facility] 11/30/2023 11:17:34 Influenza, MDCK, trivalent, PF 4 completed Marleny Ford [place] [facility] 08/16/2024 10:22:17 Past Encounters Encounter ID Performer Location Encounter Start Date Encounter Closed Date Diagnosis/Indication Diagnosis SNOMED-CT Code Diagnosis ICD10 Code Diagnosis Note [id number] Dick Merrill MD [facility] [place] [address] [place] [address] 11/30/2023 11:11:48 11/30/2023 12:20:02 Prostate specific antigen above reference range 972301482 R97.20 Pain of ri ght knee joint 8848342116 81279 M25.994 [id number] Dick Merrill MD [facility] [place] [address] [place] [address] 07/21/2024 11:08:07 07/21/2024 12:35:00 Body mass index 30+ - obesity 410926928 Z68.30 Obesity 095268444 E66.9 Adult heal th examination 465536428 Z00.00 SARS-CoV-2 vaccination declined 4072731854 Z28.21 [id number] Dick Merrill MD [facility] [place] [address] [place] [address] 09/05/2024 09:47:15 09/13/2024 14:10:03 Testosterone level below reference range 340375882 R89.1 [id number] Dick Merrill MD [facility] [place] [address] [place] [address] 09/12/2024 09:59:17 09/12/2024 16:22:28 Testosterone level below reference range 414503038 R89.1 [id number] Dick Merrill MD [facility] [place] [address] [place] [address] 09/19/2024 09:51:39 09/19/2024 10:46:49 Testosterone level below reference range 239575860 R89.1 [id number] Dick Merrill MD [facility] [place] [address] [place] [address] 09/26/2024 10:11:47 09/26/2024 15:13:59 Testosterone level below reference range 261412008 R79.89 [id number] Dick Merrill MD [facility] [place] [address] [place] [address] 10/17/2024 15:21:07 10/17/2024 16:08:33 Obese class I 5908653480 95794 E66.811 Health Concerns Section Related Observation LastModified by Organization Detai ls LastModified Time None Recorded Concern Status LastModified by Organization Details LastModified Time None Recorded Advance Directives Directive None Recorded Payers Encounter Date Sequence Insurance Name Policy Number Policy Acosta Covered Member ID Acosta Member ID Guarantor Name 09/05/2024 1 [facility] [id number] Kartik Lainez [id number] Kartik Lainez 09/12/2024 1 [facility] ([facility] [id number] Kartik Lainez [id number] Kartik Lainez 09/19/2024 1 [facility] ([facility] [id number] Kartik Lainez [id number] Kartik Lainez 09/26/2024 1 [facility] ([facility] [id number] Karitk Lainez [id number] Kartik Lainez
[2024-10-17 16:03] VITALS: BP 150/90; PULSE 97; RESP 16; TEMP 36.3; O2SAT 97
--- NOTE | 2024-10-17 16:10 | ED_ITS ---
HPI - Skin/Abscess/Foreign Bdy General Chief complaint: Skin/Abscess/Foreign Body <Shanel Walter PA-C - Last Filed: 10/19/24 18:00> Stated complaint: Poss infected spider bite left hip <Shanel Walter PA-C - Last Filed: 10/19/24 18:00> Time Seen by Provider: 10/17/24 16:10 <Shanel Walter PA-C - Last Filed: 10/19/24 18:00> Focused HPI: This is a 59 year old male that presents to the ER for an infected insect bite/sting. Reports this happened last week. The area has become more red and swollen. He saw his PCP today and was prompted to be seen in the ER. GENERAL: Well-appearing, well-nourished, and in no acute distress. HEAD: Normocephalic, atraumatic. CHEST: Clear to auscultation. ?No respiratory distress. HEART: Regular rate and rhythm.? NEURO: ?Alert and oriented x3. Patient screened in triage and initial orders placed.? ?Additional care and disposition to be based upon?diagnostic testing and treatment. <Shanel Walter PA-C - Last Filed: 10/19/24 18:00> History of Present Illness HPI narrative: agree with MSE <Alley Blas MD - Last Filed: 10/17/24 21:47> Related Data Home medications: Home Medications ?Medication ?Instructions ?Recorded ?Confirmed ?Last Taken ?Type cholecalciferol (vitamin D3) 1,250 50,000 unit PO WEEKLY 10/17/24 10/19/24 10/16/24 History mcg (50,000 unit) capsule testosterone cypionate 200 mg/mL 300 mg IM WEEKLY 10/18/24 10/18/24 10/12/24 History intramuscular oil <Shanel Walter PA-C - Last Filed: 10/19/24 18:00> Allergies/Adverse reactions: Allergies Allergy/AdvReac Type Severity Reaction Status Date / Time No Known Allergies Allergy Unknown Verified 10/17/24 15:30 <Shanel Walter PA-C - Last Filed: 10/19/24 18:00> Review of Systems 2 Review of Systems: All systems reviewed & are unremarkable except as noted in HPI and below <Alley Blas MD - Last Filed: 10/17/24 21:47> [facility] Past Medical History Medical History: Medical History Obesity <Shanel Walter PA-C - Last Filed: 10/19/24 18:00> Surgical History Surgical History: Surgical History Status post tendon repair Right bicep <Shanel Walter PA-C - Last Filed: 10/19/24 18:00> Family History Family History: Family History Other Breast cancer Diabetes mellitus Heart disease Hypertension <Shanel Walter PA-C - Last Filed: 10/19/24 18:00> Social History Social History: Social History Social History: Code status: Full code Surrogate decision maker: Smoking status: Never smoker Second hand tobacco smoke exposure: No Alcohol intake: current Substance use: never Substance use type: does not use Do You Feel Safe in your Home?: Yes Lack of Transportation: No Lack of Food: Never True Current Housing: I Have Housing Concerned About Future Housing: No Difficulty Paying Gas/Electric Bills: No Difficulty Paying for Meds: No Currently Unemployed: No Education: Master's Degree or Higher Difficulty w/ Childcare or Family Care: No Living arrangements: with family Occupation/Education: occupation 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 EYES: EOMI, conjunctiva normal ENT: Hearing grossly intact LUNGS: Nonlabored breathing. HEART: [Regular rate and rhythm] ABD: [Soft], [nontender to palpation] EXT: Normal range of motion SKIN: Large area induration left groin with 1 small area open and draining purulent discharge. NEURO: [Alert and oriented x 3. No gross focal sensory or strength deficits.] PSYCH: Normal affect <Alley Blas MD - Last Filed: 10/17/24 21:47> Course Vital Signs Vital signs: Vital Signs Temperature 97.4 F L 10/17/24 16:03 Pulse Rate 97 10/17/24 16:03 Respiratory Rate 16 10/17/24 16:03 Blood Pressure 150/90 H 10/17/24 16:03 Pulse Oximetry 97 10/17/24 16:03 Temperature 97.5 F L 10/19/24 14:00 Pulse Rate 83 10/19/24 14:00 Respiratory Rate 17 10/19/24 14:00 Blood Pressure 140/94 H 10/19/24 14:00 Pulse Oximetry 100 10/19/24 14:00 Oxygen Delivery Room Air 10/19/24 08:55 <Shanel Walter PA-C - Last Filed: 10/19/24 18:00> Vital Signs Temperature 97.4 F L 10/17/24 16:03 Pulse Rate 97 10/17/24 16:03 Respiratory Rate 16 10/17/24 16:03 Blood Pressure 150/90 H 10/17/24 16:03 Pulse Oximetry 97 10/17/24 16:03 Temperature 97.5 F L 10/19/24 14:00 Pulse Rate 83 10/19/24 14:00 Respiratory Rate 17 10/19/24 14:00 Blood Pressure 140/94 H 10/19/24 14:00 Pulse Oximetry 100 10/19/24 14:00 Oxygen Delivery Room Air 10/19/24 08:55 <Alley Blas MD - Last Filed: 10/17/24 21:47> Procedures Abscess I/D abdomen: Date of Incision: 10/17/24 <Alley Blas MD - Last Filed: 10/17/24 21:47> Side (if applicable): left <Alley Blas MD - Last Filed: 10/17/24 21:47> Sedation/analgesia: other (dilaudid) <Alley Blas MD - Last Filed: 10/17/24 21:47> Local Anesthetic: lidocaine 1% <Alley Blas MD - Last Filed: 10/17/24 21:47> Amount of anesthesia used (mL): 5 <Alley Blas MD - Last Filed: 10/17/24 21:47> Technique: incised with #11 blade and probed loculations <Alley Blas MD - Last Filed: 10/17/24 21:47> Amount of fluid expressed (mL): 5 <Alley Blas MD - Last Filed: 10/17/24 21:47> I&D Results: Pus <Alley Blas MD - Last Filed: 10/17/24 21:47> Complications: pain <Alley Blas MD - Last Filed: 10/17/24 21:47> MDM - Skin/Abscess/Foreign Bdy MDM Narrative Medical decision making narrative: MEDICAL DECISION MAKING AND COURSE IN THE ED WITH INTERPRETATION/REVIEW OF DIAGNOSTIC STUDIES: Electronic medical record was reviewed. Patient presented to the ED with complaint of painful skin rash. Vitals [were within acceptable limits]. Physical exam revealed area of tenderness and induration consistent with abscess, [with] fluctuance that may benefit from drainage. [Given patient had complaints of fever/chills at home, will obtain labs here. He does have elevated CBC, CRP, ESR.]\ Discussed with general surgeon who advised I and D at bedside and admit to hospitalist, consult if any further issues. Incision and drainage was performed here, verbal consent obtained and risks/benefits explained. Ultrasound used to guide I&D. I did see large amount of cobblestoning with some fluid. Skin was cleaned and [2% lidocaine] solution was injected to make a wheal for local anesthesia. A scalpel was used to make two [3 mm] incisions and 5cc of purulent discharge was expressed from the incision. There was [minimal] bleeding, patient tolerated procedure [well]. Wound was left open to allow for further drainage. I did repeat ultrasound and there is few less fluid amidst cobblestoning. Patient started on vanc, discussed with hospitalist, will obtain CT pelvis to ascertain amount left in case patient will require admission for general/surgically drainage. <Alley Blas MD - Last Filed: 10/17/24 21:47> Lab Data Result diagrams: 10/19/24 07:07 10/19/24 07:07 <Shanel Walter PA-C - Last Filed: 10/19/24 18:00> Labs: Lab Results 10/17/24 10/18/24 10/18/24 Range/Units 16:53 05:54 05:54 WBC 12.7 H 8.1 (4.5-10.0) K/mm3 RBC 4.40 L 4.00 L (4.6-6.20) M/mm3 Hgb 13.3 L 12.1 L (14.0-18.0) g/dL Hct 42.4 39.3 L (42.0-52.0) % MCV 96.4 98.3 (80-100) fl MCH 30.2 30.3 (26-34) pg MCHC 31.4 L 30.8 L (32-36) g/dl RDW 14.0 14.0 (11.5-14.5) % Plt Count 243 222 (150-375) k/mm3 MPV 9.7 10.1 (7.4-10.4) fl Immature Gran % (Auto) 0.5 0.5 (0-0.5) % Neut % (Auto) 80.2 H 72.0 (45.5-73.1) % Lymph % (Auto) 9.7 L 15.7 L (18.3-44.2) % [place] % (Auto) 8.1 9.4 H (2.6-8.5) % Eos % (Auto) 1.3 2.0 (0-4.4) % Baso % (Auto) 0.2 0.4 (0.2-1.2) % Lymph # (Auto) 1.23 1.27 (0.9-3.2) K/mm3 [place] # (Auto) 1.0 H 0.8 H (0.1-0.6) K/mm3 Eos # (Auto) 0.2 0.2 (0-0.3) K/mm3 Baso # (Auto) 0.0 0.0 (0.0-0.1) K/mm3 Abs Immat Gran (auto) 0.06 H 0.04 H (0.00-0.031) K/mm3 Absolute Neuts (auto) 10.1 H 5.8 (1.3-6.7) K/mm3 Absolute Nucleated RBC 0.000 0.000 (0.0-0.012) K/mm3 Nucleated RBC % 0.0 0.0 (0.0-0.2) % ESR 33 H (0-20) mm/hr Sodium 139 135 L (137-145) mmol/L Potassium 3.3 L 3.6 (3.4-5.0) mmol/L Chloride 102 102 (98-107) mmol/L Carbon Dioxide 28 26 (22-30) mmol/L Anion Gap 9 7 (4-12) mmol/L BUN 12 9 (9-20) mg/dL Creatinine 0.86 0.83 0.85 (0.7-1.3) mg/dL Estim Creat Clear Calc 81 95 ml/min Estimated GFR > 60 (59 - ) Glucose 110 (65-110) mg/dL Calcium 8.6 (8.4-10.2) mg/dL Total Bilirubin 0.4 (0.2-1.3) mg/dL AST 55 (17-59) U/L ALT 47 (6-50) U/L Alkaline Phosphatase 68 (38-126) U/L C-Reactive Protein 8.0 H (<1.0) mg/dL Total Protein 8.0 (6.3-8.2) g/dL Albumin 4.2 (3.5-5.1) g/dL 10/18/24 10/18/24 Range/Units 05:54 05:54 WBC (4.5-10.0) K/mm3 RBC (4.6-6.20) M/mm3 Hgb (14.0-18.0) g/dL Hct (42.0-52.0) % MCV (80-100) fl MCH (26-34) pg MCHC (32-36) g/dl RDW (11.5-14.5) % Plt Count (150-375) k/mm3 MPV (7.4-10.4) fl Immature Gran % (Auto) (0-0.5) % Neut % (Auto) (45.5-73.1) % Lymph % (Auto) (18.3-44.2) % [place] % (Auto) (2.6-8.5) % Eos % (Auto) (0-4.4) % Baso % (Auto) (0.2-1.2) % Lymph # (Auto) (0.9-3.2) K/mm3 [place] # (Auto) (0.1-0.6) K/mm3 Eos # (Auto) (0-0.3) K/mm3 Baso # (Auto) (0.0-0.1) K/mm3 Abs Immat Gran (auto) (0.00-0.031) K/mm3 Absolute Neuts (auto) (1.3-6.7) K/mm3 Absolute Nucleated RBC (0.0-0.012) K/mm3 Nucleated RBC % (0.0-0.2) % ESR (0-20) mm/hr Sodium (137-145) mmol/L Potassium (3.4-5.0) mmol/L Chloride (98-107) mmol/L Carbon Dioxide (22-30) mmol/L Anion Gap (4-12) mmol/L BUN (9-20) mg/dL Creatinine (0.7-1.3) mg/dL Estim Creat Clear Calc 93 ml/min Estimated GFR > 60 > 60 (59 - ) Glucose 84 (65-110) mg/dL Calcium 8.3 L (8.4-10.2) mg/dL Total Bilirubin (0.2-1.3) mg/dL AST (17-59) U/L ALT (6-50) U/L Alkaline Phosphatase (38-126) U/L C-Reactive Protein (<1.0) mg/dL Total Protein (6.3-8.2) g/dL Albumin (3.5-5.1) g/dL <Shanel Walter PA-C - Last Filed: 10/19/24 18:00> Lab Results 10/17/24 10/18/24 10/18/24 Range/Units 16:53 05:54 05:54 WBC 12.7 H 8.1 (4.5-10.0) K/mm3 RBC 4.40 L 4.00 L (4.6-6.20) M/mm3 Hgb 13.3 L 12.1 L (14.0-18.0) g/dL Hct 42.4 39.3 L (42.0-52.0) % MCV 96.4 98.3 (80-100) fl MCH 30.2 30.3 (26-34) pg MCHC 31.4 L 30.8 L (32-36) g/dl RDW 14.0 14.0 (11.5-14.5) % Plt Count 243 222 (150-375) k/mm3 MPV 9.7 10.1 (7.4-10.4) fl Immature Gran % (Auto) 0.5 0.5 (0-0.5) % Neut % (Auto) 80.2 H 72.0 (45.5-73.1) % Lymph % (Auto) 9.7 L 15.7 L (18.3-44.2) % [place] % (Auto) 8.1 9.4 H (2.6-8.5) % Eos % (Auto) 1.3 2.0 (0-4.4) % Baso % (Auto) 0.2 0.4 (0.2-1.2) % Lymph # (Auto) 1.23 1.27 (0.9-3.2) K/mm3 [place] # (Auto) 1.0 H 0.8 H (0.1-0.6) K/mm3 Eos # (Auto) 0.2 0.2 (0-0.3) K/mm3 Baso # (Auto) 0.0 0.0 (0.0-0.1) K/mm3 Abs Immat Gran (auto) 0.06 H 0.04 H (0.00-0.031) K/mm3 Absolute Neuts (auto) 10.1 H 5.8 (1.3-6.7) K/mm3 Absolute Nucleated RBC 0.000 0.000 (0.0-0.012) K/mm3 Nucleated RBC % 0.0 0.0 (0.0-0.2) % ESR 33 H (0-20) mm/hr Sodium 139 135 L (137-145) mmol/L Potassium 3.3 L 3.6 (3.4-5.0) mmol/L Chloride 102 102 (98-107) mmol/L Carbon Dioxide 28 26 (22-30) mmol/L Anion Gap 9 7 (4-12) mmol/L BUN 12 9 (9-20) mg/dL Creatinine 0.86 0.83 0.85 (0.7-1.3) mg/dL Estim Creat Clear Calc 81 95 ml/min Estimated GFR > 60 (59 - ) Glucose 110 (65-110) mg/dL Calcium 8.6 (8.4-10.2) mg/dL Total Bilirubin 0.4 (0.2-1.3) mg/dL AST 55 (17-59) U/L ALT 47 (6-50) U/L Alkaline Phosphatase 68 (38-126) U/L C-Reactive Protein 8.0 H (<1.0) mg/dL Total Protein 8.0 (6.3-8.2) g/dL Albumin 4.2 (3.5-5.1) g/dL 10/18/24 10/18/24 Range/Units 05:54 05:54 WBC (4.5-10.0) K/mm3 RBC (4.6-6.20) M/mm3 Hgb (14.0-18.0) g/dL Hct (42.0-52.0) % MCV (80-100) fl MCH (26-34) pg MCHC (32-36) g/dl RDW (11.5-14.5) % Plt Count (150-375) k/mm3 MPV (7.4-10.4) fl Immature Gran % (Auto) (0-0.5) % Neut % (Auto) (45.5-73.1) % Lymph % (Auto) (18.3-44.2) % [place] % (Auto) (2.6-8.5) % Eos % (Auto) (0-4.4) % Baso % (Auto) (0.2-1.2) % Lymph # (Auto) (0.9-3.2) K/mm3 [place] # (Auto) (0.1-0.6) K/mm3 Eos # (Auto) (0-0.3) K/mm3 Baso # (Auto) (0.0-0.1) K/mm3 Abs Immat Gran (auto) (0.00-0.031) K/mm3 Absolute Neuts (auto) (1.3-6.7) K/mm3 Absolute Nucleated RBC (0.0-0.012) K/mm3 Nucleated RBC % (0.0-0.2) % ESR (0-20) mm/hr Sodium (137-145) mmol/L Potassium (3.4-5.0) mmol/L Chloride (98-107) mmol/L Carbon Dioxide (22-30) mmol/L Anion Gap (4-12) mmol/L BUN (9-20) mg/dL Creatinine (0.7-1.3) mg/dL Estim Creat Clear Calc 93 ml/min Estimated GFR > 60 > 60 (59 - ) Glucose 84 (65-110) mg/dL Calcium 8.3 L (8.4-10.2) mg/dL Total Bilirubin (0.2-1.3) mg/dL AST (17-59) U/L ALT (6-50) U/L Alkaline Phosphatase (38-126) U/L C-Reactive Protein (<1.0) mg/dL Total Protein (6.3-8.2) g/dL Albumin (3.5-5.1) g/dL <Alley Blas MD - Last Filed: 10/17/24 21:47> Imaging Data Radiologist's impression: ITS Impressions Pelvis CT 10/17/24 21:53 IMPRESSION: No rim-enhancing fluid collection within the area of clinical concern. No abnormality within the underlying musculature or deep soft tissues <Shanel Walter PA-C - Last Filed: 10/19/24 18:00> Critical Care Time Critical Care Time Critical Care Time: No <Shanel Walter PA-C - Last Filed: 10/19/24 18:00> Discharge Plan Discharge Clinical Impression: Abscess of skin or subcutaneous tissue Qualifiers: Site of cutaneous abscess: trunk Site of cutaneous abscess of trunk: groin Q ualified Code(s): L02.214 - Cutaneous abscess of groin <Shanel Walter PA-C - Last Filed: 10/19/24 18:00> Patient Disposition: Still a Patient <ANÍBAL Padron Last Filed: 10/19/24 18:00> Condition: Stable <ANÍBAL Padron Last Filed: 10/19/24 18:00>
[2024-10-17 17:05] LABS: Basophils Percent Auto 0.2 % (0.2-1.2); Eosinophils Absolute Auto 0.2 K/mm3 (0-0.3); Eosinophils Percent Auto 1.3 % (0-4.4); Hematocrit 42.4 % (42.0-52.0); Hemoglobin 13.3 g/dL (14.0-18.0); Immature Granulocyte Absolute 0.06 K/mm3 (0.00-0.031); Immature Granulocyte Percent A 0.5 % (0-0.5); Lymphocytes Absolute Auto 1.23 K/mm3 (0.9-3.2); Lymphocytes Percent Auto 9.7 % (18.3-44.2); Mean Corpuscular HGB Conc 31.4 g/dl (32-36); Mean Corpuscular Hemoglobin 30.2 pg (26-34); Mean Corpuscular Volume 96.4 fl (80-100); Mean Platelet Volume 9.7 fl (7.4-10.4); Monocytes Percent Auto 8.1 % (2.6-8.5); Neutrophils Absolute Auto 10.1 K/mm3 (1.3-6.7); Neutrophils Percent Auto 80.2 % (45.5-73.1); Platelet Count Result 243 k/mm3 (150-375); White Blood Count 12.7 K/mm3 (4.5-10.0)
[2024-10-17 17:14] LABS: Alanine Aminotransferase 47 U/L (6-50); Albumin Level 4.2 g/dL (3.5-5.1); Alkaline Phosphatase 68 U/L (38-126); Anion Gap 9 mmol/L (4-12); Aspartate Amino Transferase 55 U/L (17-59); Bilirubin,Total 0.4 mg/dL (0.2-1.3); Blood Urea Nitrogen 12 mg/dL (9-20); Calcium 8.6 mg/dL (8.4-10.2); Carbon Dioxide 28 mmol/L (22-30); Chloride 102 mmol/L (98-107); Estimated CRCL calculation 81 ml/min; Estimated Glomerular Filt Rate > 60; Glucose 110 mg/dL (65-110); Potassium 3.3 mmol/L (3.4-5.0); Sodium 139 mmol/L (137-145)
[2024-10-17 17:37] LABS: Erythrocyte Sedimentation Rate 33 mm/hr (0-20)
[2024-10-17] MEDS: VANCOMYCIN 1,500 MG/NS 500 ML 1,500 MG/500 ML BAG 250 MG IVPB (20:10)
[2024-10-17] MEDS: HYDROmorphone HCL INJ (*CRX) 2 MG/ML VIAL 1 MG IV PUSH (20:14)
[2024-10-17 22:35] VITALS: BP 144/94; PULSE 92; RESP 15; O2SAT 100
[2024-10-17 22:57] VITALS: BMI 29.4; BMI 30.5
[2024-10-17 23:15] VITALS: BP 159/95; PULSE 99; RESP 18; TEMP 36; O2SAT 99
[2024-10-17] MEDS: MORPHINE SULFATE (*CRX) 4 MG/ML INJ 6 MG IV PUSH (23:58)
[2024-10-17] MEDS: LIDOCAINE 1% 30 ML INFILTRATE (23:59)
[2024-10-18] MEDS: HYDROmorphone HCL INJ (*CRX) 2 MG/ML VIAL 1 MG IV PUSH (00:21)
[2024-10-18] MEDS: NACL 0.9% IRRIGATION POUR BOTTLE 500 ML (00:22)
--- NOTE | 2024-10-18 00:53 | WPDPROCEDUR ---
Procedures Abscess I/D Site: other (Groin) Side (if applicable): left Sedation/analgesia: other (Morphine 6 mg x 1 Dilaudid 1 mg x 1) Anesthetic used: lidocaine 1% Technique: incised with #11 blade Amount of fluid (mL): 10 Irrigation: Yes Packing used?: flaco drain Comments: At the time my evaluation that patient had significant purulence from the more lateral of the 2 abscess sites. Prior to incision sites were enlarged with a 11 size blade. The patient skin and underlying tissues were anesthetized with approximately 20 mL of 1% lidocaine. A curved [place] was then utilized to break up loculations with expressing a somewhere between 10 and 15 mL of purulent bloody drainage. With dissection it was noted that the 2 areas of abscess were actually contiguous. A wound culture was obtained from the deep tissues. The wound was then flushed with copious amounts of normal saline. Then a [place] drain was fed through the length of a abscess cavity and secured with safety pin. Patient had minimal pain had tolerated the procedure without difficulty.
--- NOTE | 2024-10-18 01:15 | PM.IMHP ---
H&P: HPI History of Present Illness Date/Time: 10/18/24 01:15 Chief Complaint: Infected insect bite Narrative: 59-year-old male with a past medical history of obesity at erectile dysfunction who presented to the ER with complaints of infected bug bite in his left groin. The patient reports that he was out in the garage on the Thursday the whenever he had sudden sensation of being bitten in the left groin. He noticed a small area consistent with an insect bite. The he reported that 2 days later he noticed increased erythema and warmth spreading both to the left side of his groin and into the mons area. He did develop some chills the following day but did not check a temperature. He noted that the area of erythema and warmth continue to worsen. On Thursday he tried to squeeze the area of erythema to see if he could spell any pus. He could not but he did note the increased swelling to the left side as well. He thought about puncture in the area with a needle but wisely held off on doing this. His suggested that he come in to be evaluated but he decided to wait. He went to his primary care provider's office who recommended come into the ER for evaluation. The ER physician did locally I&D the 2 large areas of erythema under ultrasound guidance with small amount of purulent material expressed. Patient was placed on empiric antibiotic therapy with vancomycin. Superficial culture was obtained in the ER. He underwent CT of the pelvis after I&D When the patient arrived to the medical floor at the time my evaluation he had persistent induration. On further palpation of the area acute continued to get moderate amount of purulent fluid drainage. Patient had significant discomfort with palpation area reported the pain as a 9/10 in intensity. After pain medications he reported the pain was down to a 2/10 in intensity. He denies history of prior skin infections or allergic reactions to insect bite. Given the amount of induration and persistent purulence of the area I suspected patient may need more extensive debridement. Patient did consent for recurrent I and D and details listed under procedure note. Review of Systems Review of Systems: 12 systems were reviewed with pertinent positives and negatives per HPI. Except as documented in the HPI, all other systems were reviewed and are negative. [facility] Past Medical History Medical History (Updated 10/18/24 @ 06:29 by Esthela Harley DO) Obesity Surgical History Surgical History (Updated 10/18/24 @ 06:15 by Esthela Harley DO) Status post tendon repair Right bicep Family History Family History Other Breast cancer Diabetes mellitus Heart disease Hypertension Social History Social History (Updated 10/18/24 @ 06:16 by Esthela Harley DO) Social History: Code status: Full code Surrogate decision maker: Smoking status: Never smoker Second hand tobacco smoke exposure: No Alcohol intake: current Substance use: never Substance use type: does not use Do You Feel Safe in your Home?: Yes Lack of Transportation: No Lack of Food: Never True Current Housing: I Have Housing Concerned About Future Housing: No Difficulty Paying Gas/Electric Bills: No Difficulty Paying for Meds: No Currently Unemployed: No Education: Master's Degree or Higher Difficulty w/ Childcare or Family Care: No Living arrangements: with family Occupation/Education: occupation 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 Gender identity (if verbalized by the patient): Male Spiritual care concerns: No Meds Home Medications and Allergies Home Medications ?Medication ?Instructions ?Recorded ?Confirmed ?Type cholecalciferol (vitamin D3) 1,250 10/17/24 History mcg (50,000 unit) capsule Allergies Allergy/AdvReac Type Severity Reaction Status Date / Time No Known Allergies Allergy Unknown Verified 10/17/24 15:30 Vital Signs Vital Signs - 24 hr 10/17/24 16:03 10/17/24 22:35 10/17/24 23:15 Temperature 97.4 F L 96.8 F L Pulse Rate 97 92 99 Respiratory Rate 16 15 18 Blood Pressure 150/90 H 144/94 H 159/95 H Pulse Oximetry 97 100 99 Exam Narrative: Weight 96.6 kg BMI 30.6 Const: Other: Obese, no acute distress HENMT: Other: Mucous membranes are moist, no oral pharyngeal erythema Eyes: Other: Pupils are equal and reactive, no scleral icterus, no conjunctival pallor Neck: Other: No JVD, trachea midline Resp: Other: Clear to auscultation bilaterally anterior lane, no increased work of breathing Cardio: Other: Regular rate, regular rhythm, 2+ bilateral radial pulses GI: Other: Soft, nondistended, nontender, positive bowel sounds : Other: Large area of erythema and induration in the left line with 2 regions of increased induration the with small central incisions noted, while I was at bedside I marked the more prominent areas of induration and erythema with salad line marker and left more dotted line for the pale streaking erythema both in the distal direction and more medial into the pubic area, due to continued drainage of purulence I did do more extensive I and D with details discussed under procedure note, after procedure was completed [place] drain was secured into place Back/Spine/Pelvis: Other: Inguinal lymphadenopathy noted on the left Skin: Other: Please see details under Neuro: Other: Alert oriented, speech is clear, no facial asymmetry Extrem: Other: No clubbing, cyanosis or edema Psych: Other: Appropriate mood and affect, pleasant and cooperative, judgment and insight intact H&P: Results Labs Labs: Laboratory Tests 10/17/24 16:53 10/18/24 05:54 10/17/24 10/18/24 16:53 05:54 WBC 12.7 H RBC 4.40 L Hgb 13.3 L Hct 42.4 MCV 96.4 MCH 30.2 MCHC 31.4 L RDW 14.0 Plt Count 243 MPV 9.7 Immature Gran % (Auto) 0.5 Neut % (Auto) 80.2 H Lymph % (Auto) 9.7 L [place] % (Auto) 8.1 Eos % (Auto) 1.3 Baso % (Auto) 0.2 Lymph # (Auto) 1.23 [place] # (Auto) 1.0 H Eos # (Auto) 0.2 Baso # (Auto) 0.0 Abs Immat Gran (auto) 0.06 H Absolute Neuts (auto) 10.1 H Absolute Nucleated RBC 0.000 Nucleated RBC % 0.0 ESR 33 H Sodium 139 Potassium 3.3 L Chloride 102 Carbon Dioxide 28 Anion Gap 9 BUN 12 Creatinine 0.86 0.83 Estim Creat Clear Calc 81 95 Estimated GFR > 60 > 60 Glucose 110 Calcium 8.6 Total Bilirubin 0.4 AST 55 ALT 47 Alkaline Phosphatase 68 C-Reactive Protein 8.0 H Total Protein 8.0 Albumin 4.[address] 10/17/24 21:53 IMPRESSION: No rim-enhancing fluid collection within the area of clinical concern. No abnormality within the underlying musculature or deep soft tissues Assessment and Plan Assessment and plan (1) Abscess of skin or subcutaneous tissue: Qualifiers: Site of cutaneous abscess: trunk Site of cutaneous abscess of trunk: groin Qualified Code(s): L02.214 - Cutaneous abscess of groin Code(s): L02.91 - Cutaneous abscess, unspecified Status: Acute Plan Patient has a left groin abscess that has subsequently been I&D. Wound culture and Gram stain is pending. Patient has been started on empiric antibiotic therapy with vancomycin. Patient does not meet sepsis criteria. CT of the pelvis does not demonstrate any deeper tissue infection. General surgery was consulted from the ER but I suppose the patient could follow up outpatient with wound care versus General surgery. Quality VTE Prophylaxis VTE prophylaxis: pharmacologic ordered (Lovenox 40 mg subQ daily.) Hospitalist MIPS Advance Care Plan I have confirmed that the patient's Advanced Care Plan is present, code status is documented, or surrogate decision maker is listed in patient medical record.: Yes Medication Reconciliation I have utilized all available resources to obtain, update and review the patients current medications (includes all prescriptions, OTC, herbals, cannabis, and nutritional supplements).: Yes
[2024-10-18 05:53] VITALS: BP 127/87; PULSE 83; RESP 18; TEMP 36.1; O2SAT 97
[2024-10-18 06:21] LABS: Estimated CRCL calculation 95 ml/min; Estimated Glomerular Filt Rate > 60
[2024-10-18 07:02] LABS: Basophils Percent Auto 0.4 % (0.2-1.2); Eosinophils Absolute Auto 0.2 K/mm3 (0-0.3); Hematocrit 39.3 % (42.0-52.0); Hemoglobin 12.1 g/dL (14.0-18.0); Immature Granulocyte Absolute 0.04 K/mm3 (0.00-0.031); Immature Granulocyte Percent A 0.5 % (0-0.5); Lymphocytes Absolute Auto 1.27 K/mm3 (0.9-3.2); Lymphocytes Percent Auto 15.7 % (18.3-44.2); Mean Corpuscular HGB Conc 30.8 g/dl (32-36); Mean Corpuscular Hemoglobin 30.3 pg (26-34); Mean Corpuscular Volume 98.3 fl (80-100); Mean Platelet Volume 10.1 fl (7.4-10.4); Monocytes Absolute Auto 0.8 K/mm3 (0.1-0.6); Monocytes Percent Auto 9.4 % (2.6-8.5); Neutrophils Absolute Auto 5.8 K/mm3 (1.3-6.7); Platelet Count Result 222 k/mm3 (150-375); White Blood Count 8.1 K/mm3 (4.5-10.0)
[2024-10-18 07:36] LABS: Anion Gap 7 mmol/L (4-12); Blood Urea Nitrogen 9 mg/dL (9-20); Calcium 8.3 mg/dL (8.4-10.2); Carbon Dioxide 26 mmol/L (22-30); Chloride 102 mmol/L (98-107); Estimated CRCL calculation 93 ml/min; Estimated Glomerular Filt Rate > 60; Glucose 84 mg/dL (65-110); Potassium 3.6 mmol/L (3.4-5.0); Sodium 135 mmol/L (137-145)
[2024-10-18] MEDS: VANCOMYCIN 1,500 MG/NS 500 ML 1,500 MG/500 ML BAG 250 MG IVPB ×2 (08:46→20:24)
[2024-10-18] MEDS: ENOXAPARIN 40 MG/0.4 ML SYRINGE SUB-Q (08:52)
--- NOTE | 2024-10-18 10:18 | PM.IMPN ---
Progress Note: A&P Assessment and Plan (1) Abscess of skin or subcutaneous tissue: Qualifiers: Site of cutaneous abscess: trunk Site of cutaneous abscess of trunk: groin Qualified Code(s): L02.214 - Cutaneous abscess of groin Code(s): L02.91 - Cutaneous abscess, unspecified Status: Acute Assessment and Plan: Left groin abscess --Increasing redness. Indurated on exam --Consult surgery --Continue IV Vancomycin --Start Cefepime empirically --Follow cultures sent yesterday Time Spent With Patient Time: 32 minutes Subjective Date/time seen: 10/18/24 10:18 Interval history: Increased redness to left groin, has a drain in place No evidence of rim enhancing fluid collection on CT but more indurated today per patient No fevers. WBC improved Exam Narrative: General - Awake and alert. No acute distress Eyes - PERRLA, EOM intact ENT - No thrush, No erythema Neck - No noticeable or palpable swelling Lymph Nodes - No lymphadenopathy Cardiovascular - RRR no m/r/g, no JVD Lungs: Clear to auscultation, No wheezing, use of accessory muscles, no crackles or wheezes. Skin - Skin warm and dry, Left groin erythema, induration, flaco drain in place Abdomen - Normal bowel sounds, abdomen soft and nontender Extremities - No edema, cyanosis or clubbing Musculoskeletal - 5/5 strength, normal range of motion, no swollen or erythematous joints. Neurological ? Alert and oriented x 3, CN 2-12 grossly intact. Psych: Normal mood and affect Objective Data Vital Signs Vital Signs: Vital Signs - 24 hr 10/17/24 16:03 10/17/24 22:35 10/17/24 23:15 Temperature 97.4 F L 96.8 F L Pulse Rate 97 92 99 Respiratory Rate 16 15 18 Blood Pressure 150/90 H 144/94 H 159/95 H Pulse Oximetry 97 100 99 Oxygen Delivery 10/18/24 03:51 10/18/24 05:53 Temperature 96.9 F L Pulse Rate 83 Respiratory Rate 18 Blood Pressure 127/87 Pulse Oximetry 97 Oxygen Delivery Room Air Intake/Output Intake/Output: Intake & Output 10/15/24 10/16/24 10/17/24 10/18/24 23:59 23:59 23:59 23:59 Intake Total 500 240 Balance 500 240 Meds/Results Medications: Active Medications Generic Name Dose Route Start Last Admin Trade Name Freq PRN Reason Stop Dose Admin Enoxaparin Sodium 40 mg 10/18/24 09:00 10/18/24 08:52 Enoxaparin 40 Mg/0.4 Ml Syringe SUB-Q 40 mg DAILY CELESTINO Administration Vancomycin HCl 1,500 mg in 500 mls @ 250 mls/hr 10/17/24 20:00 10/18/24 08:46 Vancomycin 1,500 Mg/Ns 500 Ml IVPB 250 mls/hr Q12H CELESTINO Administration Cefepime HCl 2 gm in 50 mls @ 100 mls/hr 10/18/24 10:20 Maxipime 2 Gm/Ns 50 Ml IVPB Q8H CELESTINO Morphine Sulfate 2 mg 10/17/24 21:28 Morphine Sulfate (*Crx) 2 Mg/Ml Inj IV PUSH Q2H PRN Pain Rated 7-10 Radiology Results: ITS Impressions Pelvis CT 10/17/24 21:53 IMPRESSION: No rim-enhancing fluid collection within the area of clinical concern. No abnormality within the underlying musculature or deep soft tissues Labs Labs: Laboratory Results - last 24 hr 10/17/24 10/18/24 10/18/24 16:53 05:54 05:54 WBC 12.7 H 8.1 RBC 4.40 L 4.00 L Hgb 13.3 L 12.1 L Hct 42.4 39.3 L MCV 96.4 98.3 MCH 30.2 30.3 MCHC 31.4 L 30.8 L RDW 14.0 14.0 Plt Count 243 222 MPV 9.7 10.1 Immature Gran % (Auto) 0.5 0.5 Neut % (Auto) 80.2 H 72.0 Lymph % (Auto) 9.7 L 15.7 L [place] % (Auto) 8.1 9.4 H Eos % (Auto) 1.3 2.0 Baso % (Auto) 0.2 0.4 Lymph # (Auto) 1.23 1.27 [place] # (Auto) 1.0 H 0.8 H Eos # (Auto) 0.2 0.2 Baso # (Auto) 0.0 0.0 Abs Immat Gran (auto) 0.06 H 0.04 H Absolute Neuts (auto) 10.1 H 5.8 Absolute Nucleated RBC 0.000 0.000 Nucleated RBC % 0.0 0.0 ESR 33 H Sodium 139 135 L Potassium 3.3 L 3.6 Chloride 102 102 Carbon Dioxide 28 26 Anion Gap 9 7 BUN 12 9 Creatinine 0.86 0.83 0.85 Estim Creat Clear Calc 81 95 Estimated GFR > 60 Glucose 110 Calcium 8.6 Total Bilirubin 0.4 AST 55 ALT 47 Alkaline Phosphatase 68 C-Reactive Protein 8.0 H Total Protein 8.0 Albumin 4.2 10/18/24 10/18/24 05:54 05:54 WBC RBC Hgb Hct MCV MCH MCHC RDW Plt Count MPV Immature Gran % (Auto) Neut % (Auto) Lymph % (Auto) [place] % (Auto) Eos % (Auto) Baso % (Auto) Lymph # (Auto) [place] # (Auto) Eos # (Auto) Baso # (Auto) Abs Immat Gran (auto) Absolute Neuts (auto) Absolute Nucleated RBC Nucleated RBC % ESR Sodium Potassium Chloride Carbon Dioxide Anion Gap BUN Creatinine Estim Creat Clear Calc 93 Estimated GFR > 60 > 60 Glucose 84 Calcium 8.3 L Total Bilirubin AST ALT Alkaline Phosphatase C-Reactive Protein Total Protein Albumin Quality VTE Prophylaxis VTE prophylaxis: pharmacologic ordered Hospitalist MIPS Advance Care Plan I have confirmed that the patient's Advanced Care Plan is present, code status is documented, or surrogate decision maker is listed in patient medical record.: Yes Medication Reconciliation The patient is not eligible for med reconciliation; the patient is in a emergent medical situation where delaying treatment would jeopardize the patients health.: Yes
[2024-10-18] MEDS: MORPHINE SULFATE (*CRX) 2 MG/ML INJ IV PUSH ×3 (10:37→23:03)
[2024-10-18] MEDS: CEFEPIME 2 GM/NS 50 ML 2 GM/50 ML BAG IVPB ×2 (11:46→18:06)
--- NOTE | 2024-10-18 12:54 | P.CONGS_ITS ---
Assessment and Plan Assessment and plan (1) Abscess of skin or subcutaneous tissue: Qualifiers: Site of cutaneous abscess: trunk Site of cutaneous abscess of trunk: [place] Qualified Code(s): L02.214 - Cutaneous abscess of groin Code(s): L02.91 - Cutaneous abscess, unspecified Status: Acute Assessment and Plan: Patient presents with a left groin abscess that was drained in the ED and again by the Hospitalist. He now has two open incisions connected by a flaco drain. Wound cultures are pending. This appears adequately drained. No purulent drainage or necrotic skin noted on exam. CT scan on admission showed no abscess or findings suggestive of a deeper infection. No indication for further surgical intervention at this time, but will continue to follow. Continue IV antibiotics and tailor to cultures. Will recheck labs and a hemoglobin A1C in the am. Plan I have discussed the patient's case and plan of care with Dr. Aggarwal. History of Present Illness Consult details Consult date: 10/18/24 Reason for consult: other (Left groin abscess) Requesting physician: Chante Dan APRN Narrative: This is a 59-year-old man who presented to the ED yesterday due to complaints of left groin swelling and redness. Patient reportedly got bit last Thursday by a bug. He felt the bike, but did not see an insect. He noticed a red bump after being bit. Over the next 2 days, he noticed increasing redness and swelling. Through the weekend, his swelling and redness progressed and he developed drainage from the area in his left groin. He went to his PCP yesterday, who recommended ER evaluation. Workup in [place] [address], CRP 8.0. CT pelvis IV contrast showed no rim enhancing fluid collection within the area of clinical concern and no abnormality within the underlying deep musculature or soft tissues. At evidence of a left groin abscess on exam and had incision and drainage in the ED. He was admitted to the hospitalist service and started on broad-spectrum IV antibiotics. Wound culture was obtained. Hospitalist then performed a second incision and drainage of a second fluctuant area. They placed a [place] drain connecting the 2 incisions. Our service has been consulted today for evaluation of the left groin abscess. Gram stain showed growth of gram-positive cocci. No history of diabetes or MRSA infection. No previous surgeries in this area. Review of Systems 2 Review of Systems: All systems reviewed & are unremarkable except as noted in HPI and below PMFSH Past Medical History Medical History Obesity Surgical History Surgical History Status post tendon repair Right bicep Family History Family History Other Breast cancer Diabetes mellitus Heart disease Hypertension Social History Social History Social History: Code status: Full code Surrogate decision maker: Smoking status: Never smoker Second hand tobacco smoke exposure: No Alcohol intake: current Substance use: never Substance use type: does not use Do You Feel Safe in your Home?: Yes Lack of Transportation: No Lack of Food: Never True Current Housing: I Have Housing Concerned About Future Housing: No Difficulty Paying Gas/Electric Bills: No Difficulty Paying for Meds: No Currently Unemployed: No Education: Master's Degree or Higher Difficulty w/ Childcare or Family Care: No Living arrangements: with family Occupation/Education: occupation 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 Gender identity (if verbalized by the patient): Male Spiritual care concerns: No Meds Home Medications and Allergies Home Medications ?Medication ?Instructions ?Recorded ?Confirmed ?Type cholecalciferol (vitamin D3) 1,250 10/17/24 History mcg (50,000 unit) capsule Allergies Allergy/AdvReac Type Severity Reaction Status Date / Time No Known Allergies Allergy Unknown Verified 10/17/24 15:30 Vital Signs Vital Signs - 24 hr 10/17/24 16:03 10/17/24 22:35 10/17/24 23:15 Temperature 97.4 F L 96.8 F L Pulse Rate 97 92 99 Respiratory Rate 16 15 18 Blood Pressure 150/90 H 144/94 H 159/95 H Pulse Oximetry 97 100 99 Oxygen Delivery 10/18/24 03:51 10/18/24 05:53 Temperature 96.9 F L Pulse Rate 83 Respiratory Rate 18 Blood Pressure 127/87 Pulse Oximetry 97 Oxygen Delivery Room Air Exam 2 Const: General: comfortable and no acute distress Nutritional Appearance: a verage body habitus Orientation/consciousness: patient oriented x3 HENMT: Head: normocephalic and atraumatic Ears: hearing grossly normal bilaterally Mouth: Yes moist mucous membranes Eyes: General: appearance normal, both eyes and all related structures P upils: Equal, round and reactive pupils present Neck: Neck: normal visual inspection and full ROM Resp: Effort & Inspection: no respiratory distress Auscultation: clear to auscultation bilaterally Cardio: Rate: regular rate Rhythm: regular rhythm Peripheral pulses: P eripheral pulses 2+ throughout GI: Inspection: non-distended GI Palp: Yes Soft to palpation, No Tenderness to palpation present (GI), No Guarding due to palpation present (GI), Yes No hepatosplenomegaly present and No Rebound tenderness present Percussion: Yes normal to percussion Auscultation: normal bowel sounds : Penis: Yes normal penis Scrotum: scrotum normal Testes: Testes normal Male genitals images: 1. Large area of erythema with central area of induration and two incisions that connect when probing, there is a flaco drain in place that connects the two open incisions, no purulent drainage or areas of fluctuance, no skin necrosis Skin: General skin exam: normal color Neuro: General: moves all extremities and no focal motor deficits Speech: n ormal speech Motor exam (neuro): 5/5 motor strength present throughout Extrem: General: normal to inspection and no edema Psych: Mental Status: mental status grossly normal Attitude: cooperative Insight: Good insight present (Psych) Judgement: Good judgement present (Psych) Results Labs 10/18/24 05:54 10/18/24 05:54 Labs: Abnormal lab results 10/17/24 10/18/24 Range/Units 16:53 05:54 WBC 12.7 H (4.5-10.0) K/mm3 RBC 4.40 L 4.00 L (4.6-6.20) M/mm3 Hgb 13.3 L 12.1 L (14.0-18.0) g/dL Hct 39.3 L (42.0-52.0) % MCHC 31.4 L 30.8 L (32-36) g/dl Neut % (Auto) 80.2 H (45.5-73.1) % Lymph % (Auto) 9.7 L 15.7 L (18.3-44.2) % [place] % (Auto) 9.4 H (2.6-8.5) % [place] # (Auto) 1.0 H 0.8 H (0.1-0.6) K/mm3 Abs Immat Gran (auto) 0.06 H 0.04 H (0.00-0.031) K/mm3 Absolute Neuts (auto) 10.1 H (1.3-6.7) K/mm3 ESR 33 H (0-20) mm/hr Sodium 135 L (137-145) mmol/L Potassium 3.3 L (3.4-5.0) mmol/L Calcium 8.3 L (8.4-10.2) mg/dL C-Reactive Protein 8.0 H (<1.0) mg/dL Diabetes panel 10/17/24 10/18/24 10/18/24 Range/Units 16:53 05:54 05:54 Sodium 139 135 L (137-145) mmol/L Potassium 3.3 L 3.6 (3.4-5.0) mmol/L Chloride 102 102 (98-107) mmol/L Carbon Dioxide 28 26 (22-30) mmol/L BUN 12 9 (9-20) mg/dL Creatinine 0.86 0.83 0.85 (0.7-1.3) mg/dL Glucose 110 84 (65-110) mg/dL Calcium 8.6 8.3 L (8.4-10.2) mg/dL AST 55 (17-59) U/L ALT 47 (6-50) U/L Alkaline Phosphatase 68 (38-126) U/L Total Protein 8.0 (6.3-8.2) g/dL Albumin 4.2 (3.5-5.1) g/dL Calcium panel 10/17/24 10/18/24 Range/Units 16:53 05:54 Calcium 8.6 8.3 L (8.4-10.2) mg/dL Albumin 4.2 (3.5-5.1) g/dL Pituitary panel 10/17/24 10/18/24 10/18/24 Range/Units 16:53 05:54 05:54 Sodium 139 135 L (137-145) mmol/L Potassium 3.3 L 3.6 (3.4-5.0) mmol/L Chloride 102 102 (98-107) mmol/L Carbon Dioxide 28 26 (22-30) mmol/L BUN 12 9 (9-20) mg/dL Creatinine 0.86 0.83 0.85 (0.7-1.3) mg/dL Glucose 110 84 (65-110) mg/dL Calcium 8.6 8.3 L (8.4-10.2) mg/dL Adrenal panel 10/17/24 10/18/24 10/18/24 Range/Units 16:53 05:54 05:54 Sodium 139 135 L (137-145) mmol/L Potassium 3.3 L 3.6 (3.4-5.0) mmol/L Chloride 102 102 (98-107) mmol/L Carbon Dioxide 28 26 (22-30) mmol/L BUN 12 9 (9-20) mg/dL Creatinine 0.86 0.83 0.85 (0.7-1.3) mg/dL Glucose 110 84 (65-110) mg/dL Calcium 8.6 8.3 L (8.4-10.2) mg/dL Total Bilirubin 0.4 (0.2-1.3) mg/dL AST 55 (17-59) U/L ALT 47 (6-50) U/L Alkaline Phosphatase 68 (38-126) U/L Total Protein 8.0 (6.3-8.2) g/dL Albumin 4.2 (3.5-5.1) g/dL All other labs normal. Imaging Additional studies: ITS Impressions Pelvis CT 10/17/24 21:53 IMPRESSION: No rim-enhancing fluid collection within the area of clinical concern. No abnormality within the underlying musculature or deep soft tissues
[2024-10-18 14:00] VITALS: BP 134/93; PULSE 77; RESP 18; TEMP 36.1; O2SAT 97
[2024-10-18 20:15] VITALS: BP 165/92; PULSE 78; RESP 16; TEMP 36.1; O2SAT 98
[2024-10-18] MEDS: MELATONIN 5 MG TABLET PO (23:04)
[2024-10-19] MEDS: CEFEPIME 2 GM/NS 50 ML 2 GM/50 ML BAG IVPB (03:14)
[2024-10-19] MEDS: MORPHINE SULFATE (*CRX) 2 MG/ML INJ IV PUSH (04:39)
[2024-10-19 05:03] VITALS: BP 135/83; PULSE 82; RESP 18; TEMP 36.2; O2SAT 98
[2024-10-19 07:15] LABS: Hematocrit 41.7 % (42.0-52.0); Hemoglobin 13.1 g/dL (14.0-18.0); Mean Corpuscular HGB Conc 31.4 g/dl (32-36); Mean Corpuscular Hemoglobin 30.2 pg (26-34); Mean Corpuscular Volume 96.1 fl (80-100); Mean Platelet Volume 9.5 fl (7.4-10.4); Platelet Count Result 249 k/mm3 (150-375); Red Blood Count 4.34 M/mm3 (4.6-6.20); Red Cell Distribution Width 13.8 % (11.5-14.5); White Blood Count 6.6 K/mm3 (4.5-10.0)
[2024-10-19 07:25] LABS: Anion Gap 7 mmol/L (4-12); Blood Urea Nitrogen 7 mg/dL (9-20); Calcium 8.8 mg/dL (8.4-10.2); Carbon Dioxide 29 mmol/L (22-30); Chloride 102 mmol/L (98-107); Estimated CRCL calculation 93 ml/min; Estimated Glomerular Filt Rate > 60; Glucose 94 mg/dL (65-110); Potassium 4.1 mmol/L (3.4-5.0); Sodium 138 mmol/L (137-145)
[2024-10-19 07:26] LABS: Hemoglobin A1C 5.3 % (<5.7)
[2024-10-19 07:33] LABS: Vancomycin Trough 10.2 ug/mL (10.0-20.0)
--- NOTE | 2024-10-19 08:32 | P.PNIM_ITS ---
Progress Note: A&P Assessment and Plan (1) Abscess of skin or subcutaneous tissue: Qualifiers: Site of cutaneous abscess: trunk Site of cutaneous abscess of trunk: groin Qualified Code(s): L02.214 - Cutaneous abscess of groin Code(s): L02.91 - Cutaneous abscess, unspecified Status: Acute Assessment and Plan: * Left groin abscess * General surgery following * Started on IV Vanc, switched to PO Linezolid * First set of BC: Staph Aureus * 2nd BC: preliminary result negative Subjective Date/time seen: 10/19/24 08:32 Interval history: 59-year-old male with a past medical history of obesity at erectile dysfunction who presented to the ER with complaints of infected bug bite in his left groin. 10/19/2024 Patient sitting comfortably in bed at time of exam. Denies any CP, SOB, n/v, dizziness or abd pain at this time. Abscess improving clinically, pt feeling better and endorses less pain/drainage today. Gen surg still following, continue local wound care and antibiotics. No further concerns at this time. Review of Systems Review of Systems: 12 systems were reviewed with pertinent positives and negatives per HPI. Except as documented in the HPI, all other systems were reviewed and are negative. Exam Narrative: General - Awake and alert. No acute distress Eyes - PERRLA, EOM intact ENT - No thrush, No erythema Neck - No noticeable or palpable swelling Lymph Nodes - No lymphadenopathy Cardiovascular - RRR no m/r/g, no JVD Lungs: Clear to auscultation, No wheezing, use of accessory muscles, no crackles or wheezes. Skin - Skin warm and dry, Left groin erythema, induration, flaco drain in place, decreased swelling Abdomen - Normal bowel sounds, abdomen soft and nontender Extremities - No edema, cyanosis or clubbing Musculoskeletal - 5/5 strength, normal range of motion, no swollen or erythematous joints. Neurological ? Alert and oriented x 3, CN 2-12 grossly intact. Psych: Normal mood and affect Const: Other: Obese, no acute distress HENMT: Other: Mucous membranes are moist, no oral pharyngeal erythema Eyes: Other: Pupils are equal and reactive, no scleral icterus, no conjunctival pallor Neck: Other: No JVD, trachea midline Resp: Other: Clear to auscultation bilaterally anterior lane, no increased work of breathing Cardio: Other: Regular rate, regular rhythm, 2+ bilateral radial pulses GI: Other: Soft, nondistended, nontender, positive bowel sounds : Other: Large area of erythema and induration in the left line with 2 regions of incr eased induration the with small central incisions noted, while I was at bedside I marked the more prominent areas of induration and erythema with salad line marker and left more dotted line for the pale streaking erythema both in the distal direction and more medial into the pubic area, due to continued drainage of purulence I did do more extensive I and D with details discussed under procedure note, after procedure was completed Flaco drain was secured into place Back/Spine/Pelvis: Other: Inguinal lymphadenopathy noted on the left Skin: Other: Please see details under Neuro: Other: Alert oriented, speech is clear, no facial asymmetry Extrem: Other: No clubbing, cyanosis or edema Psych: Other: Appropriate mood and affect, pleasant and cooperative, judgment and insight intact Objective Data Vital Signs Vital Signs: Vital Signs - 24 hr 10/18/24 14:00 10/18/24 20:00 10/18/24 20:15 Temperature 96.9 F L 97.0 F L Pulse Rate 77 78 Respiratory Rate 18 16 Blood Pressure 134/93 H 165/92 H Pulse Oximetry 97 98 Oxygen Delivery Room Air 10/19/24 05:03 Temperature 97.2 F L Pulse Rate 82 Respiratory Rate 18 Blood Pressure 135/83 Pulse Oximetry 98 Oxygen Delivery Intake/Output Intake/Output: Intake & Output 10/16/24 10/17/24 10/18/24 10/19/24 23:59 23:59 23:59 23:59 Intake Total 500 3306 890 Balance 500 3306 890 Meds/Results Medications: Active Medications Generic Name Dose Route Start Last Admin Trade Name Freq PRN Reason Stop Dose Admin Enoxaparin Sodium 40 mg 10/18/24 09:00 10/18/24 08:52 Enoxaparin 40 Mg/0.4 Ml Syringe SUB-Q 40 mg DAILY CELESTINO Administration Vancomycin HCl 1,500 mg in 500 mls @ 250 mls/hr 10/17/24 20:00 10/18/24 22:24 Vancomycin 1,500 Mg/Ns 500 Ml IVPB Infused Q12H CELESTINO Infusion Cefepime HCl 2 gm in 50 mls @ 100 mls/hr 10/18/24 11:00 10/19/24 03:44 Maxipime 2 Gm/Ns 50 Ml IVPB Infused Q8H CELESTINO Infusion Melatonin 5 mg 10/18/24 22:38 10/18/24 23:04 Melatonin 5 Mg Tablet PO 5 mg HS PRN Administration Insomnia Morphine Sulfate 2 mg 10/17/24 21:28 10/19/24 04:39 Morphine Sulfate (*Crx) 2 Mg/Ml Inj IV PUSH 2 mg Q2H PRN Administration Pain Rated 7-10 Radiology Results: ITS Impressions Pelvis CT 10/17/24 21:53 IMPRESSION: No rim-enhancing fluid collection within the area of clinical concern. No abno rmality within the underlying musculature or deep soft tissues Labs Labs: Laboratory Results - last 24 hr 10/19/24 07:07 WBC 6.6 RBC 4.34 L Hgb 13.1 L Hct 41.7 L MCV 96.1 MCH 30.2 MCHC 31.4 L RDW 13.8 Plt Count 249 MPV 9.5 Sodium 138 Potassium 4.1 Chloride 102 Carbon Dioxide 29 Anion Gap 7 BUN 7 L Creatinine 0.85 Estim Creat Clear Calc 93 Estimated GFR > 60 Glucose 94 Hemoglobin A1c 5.3 Calcium 8.8 Vancomycin Trough 10.2 Quality VTE Prophylaxis VTE prophylaxis: pharmacologic ordered
[2024-10-19] MEDS: VANCOMYCIN 1,500 MG/NS 500 ML 1,500 MG/500 ML BAG 250 MG IVPB (08:55)
[2024-10-19] MEDS: ENOXAPARIN 40 MG/0.4 ML SYRINGE SUB-Q (08:55)
--- NOTE | 2024-10-19 10:36 | PM.PNGS ---
Progress Note: A&P Assessment and Plan (1) Abscess of skin or subcutaneous tissue: Qualifiers: Site of cutaneous abscess: trunk Site of cutaneous abscess of trunk: groin Qualified Code(s): L02.214 - Cutaneous abscess of groin Code(s): L02.91 - Cutaneous abscess, unspecified Status: Acute Assessment and Plan: improved, cont local wound care and abx Subjective Subjective Date/Time Seen: 10/19/24 10:36 Interval history: feels better, pain and swelling improved Review of Systems Review of Systems: All systems reviewed & are unremarkable except as noted in HPI and below Exam Const: General: cooperative, comfortable and no acute distress Resp: Auscultation: clear to auscultation bilaterally Cardio: Rate: regular rate Rhythm: regular rhythm GI: Inspection: normal to inspection Skin: Other: L groin - abscess draining well, decreased swelling and cellulitis Objective Data Vital Signs Vital Signs: Vital Signs - 24 hr 10/18/24 14:00 10/18/24 20:00 10/18/24 20:15 Temperature 36.1 C L 36.1 C L Pulse Rate 77 78 Respiratory Rate 18 16 Blood Pressure 134/93 H 165/92 H Pulse Oximetry 97 98 Oxygen Delivery Room Air 10/19/24 05:03 Temperature 36.2 C L Pulse Rate 82 Respiratory Rate 18 Blood Pressure 135/83 Pulse Oximetry 98 Oxygen Delivery Intake/Output Intake/Output: Intake & Output 10/16/24 10/17/24 10/18/24 10/19/24 23:59 23:59 23:59 23:59 Intake Total 500 3306 890 Balance 500 3306 890 Meds/Results Medications: Active Medications Generic Name Dose Route Start Last Admin Trade Name Freq PRN Reason Stop Dose Admin Enoxaparin Sodium 40 mg 10/18/24 09:00 10/19/24 08:55 Enoxaparin 40 Mg/0.4 Ml Syringe SUB-Q 40 mg DAILY CELESTINO Administration Vancomycin HCl 1,500 mg in 500 mls @ 250 mls/hr 10/17/24 20:00 10/19/24 08:55 Vancomycin 1,500 Mg/Ns 500 Ml IVPB 250 mls/hr Q12H CELESTINO Administration Cefepime HCl 2 gm in 50 mls @ 100 mls/hr 10/18/24 11:00 10/19/24 03:44 Maxipime 2 Gm/Ns 50 Ml IVPB Infused Q8H CELESTINO Infusion Melatonin 5 mg 10/18/24 22:38 10/18/24 23:04 Melatonin 5 Mg Tablet PO 5 mg HS PRN Administration Insomnia Morphine Sulfate 2 mg 10/17/24 21:28 10/19/24 04:39 Morphine Sulfate (*Crx) 2 Mg/Ml Inj IV PUSH 2 mg Q2H PRN Administration Pain Rated 7-10 Radiology Results: ITS Impressions Pelvis CT 10/17/24 21:53 IMPRESSION: No rim-enhancing fluid collection within the area of clinical concern. No abnormality within the underlying musculature or deep soft tissues Labs Labs: Laboratory Results - last 24 hr 10/19/24 07:07 WBC 6.6 RBC 4.34 L Hgb 13.1 L Hct 41.7 L MCV 96.1 MCH 30.2 MCHC 31.4 L RDW 13.8 Plt Count 249 MPV 9.5 Sodium 138 Potassium 4.1 Chloride 102 Carbon Dioxide 29 Anion Gap 7 BUN 7 L Creatinine 0.85 Estim Creat Clear Calc 93 Estimated GFR > 60 Glucose 94 Hemoglobin A1c 5.3 Calcium 8.8 Vancomycin Trough 10.2
[2024-10-19 14:00] VITALS: BP 140/94; PULSE 83; RESP 17; TEMP 36.4; O2SAT 100
[2024-10-19] MEDS: LINEZOLID 600 MG TABLET PO (20:17)
[2024-10-19 22:00] VITALS: BP 160/100; PULSE 86; RESP 18; TEMP 36.8; O2SAT 98
[2024-10-20 06:00] VITALS: BP 149/86; PULSE 74; RESP 19; TEMP 36.7; O2SAT 98
--- NOTE | 2024-10-20 07:29 | P.PNIM_ITS ---
Progress Note: A&P Assessment and Plan (1) Abscess of skin or subcutaneous tissue: Qualifiers: Site of cutaneous abscess: trunk Site of cutaneous abscess of trunk: groin Qualified Code(s): L02.214 - Cutaneous abscess of groin Code(s): L02.91 - Cutaneous abscess, unspecified Status: Acute Assessment and Plan: * Left groin abscess * General surgery following * Started on IV Vanc, switched to PO Linezolid * First set of BC: Staph Aureus * 2nd BC: preliminary result negative Subjective Date/time seen: 10/20/24 07:29 Interval history: 59-year-old male with a past medical history of obesity at erectile dysfunction who presented to the ER with complaints of infected bug bite in his left groin. 10/20/2024 Patient sitting comfortably in bed at time of exam. Review of Systems Review of Systems: 12 systems were reviewed with pertinent positives and negatives per HPI. Except as documented in the HPI, all other systems were reviewed and are negative. Exam Narrative: General - Awake and alert. No acute distress Eyes - PERRLA, EOM intact ENT - No thrush, No erythema Neck - No noticeable or palpable swelling Lymph Nodes - No lymphadenopathy Cardiovascular - RRR no m/r/g, no JVD Lungs: Clear to auscultation, No wheezing, use of accessory muscles, no crackles or wheezes. Skin - Skin warm and dry, Left groin erythema, induration, flaco drain in place, decreased swelling Abdomen - Normal bowel sounds, abdomen soft and nontender Extremities - No edema, cyanosis or clubbing Musculoskeletal - 5/5 strength, normal range of motion, no swollen or erythematous joints. Neurological ? Alert and oriented x 3, CN 2-12 grossly intact. Psych: Normal mood and affect Const: Other: Obese, no acute distress HENMT: Other: Mucous membranes are moist, no oral pharyngeal erythema Eyes: Other: Pupils are equal and reactive, no scleral icterus, no conjunctival pallor Neck: Other: No JVD, trachea midline Resp: Other: Clear to auscultation bilaterally anterior lane, no increased work of breathing Cardio: Other: Regular rate, regular rhythm, 2+ bilateral radial pulses GI: Other: Soft, nondistended, nontender, positive bowel sounds : Other: Large area of erythema and induration in the left line with 2 regions of increased induration the with small central incisions noted, while I was at bedside I marked the more prominent areas of induration and erythema with salad line marker and left more dotted line for the pale streaking erythema both in the distal direction and more medial into the pubic area, due to continued drainage of purulence I did do more extensive I and D with details discussed under procedure note, after procedure was completed Flaco drain was secured into place Back/Spine/Pelvis: Other: Inguinal lymphadenopathy noted on the left Skin: Other: Please see details under Neuro: Other: Alert oriented, speech is clear, no facial asymmetry Extrem: Other: No clubbing, cyanosis or edema Psych: Other: Appropriate mood and affect, pleasant and cooperative, judgment and insight intact Objective Data Vital Signs Vital Signs: Vital Signs - 24 hr 10/19/24 08:55 10/19/24 14:00 10/19/24 20:00 Temperature 97.5 F L Pulse Rate 83 Respiratory Rate 17 Blood Pressure 140/94 H Pulse Oximetry 100 Oxygen Delivery Room Air Room Air 10/19/24 22:00 10/20/24 06:00 Temperature 98.2 F 98.1 F Pulse Rate 86 74 Respiratory Rate 18 19 Blood Pressure 160/100 H 149/86 H Pulse Oximetry 98 98 Oxygen Delivery Intake/Output Intake/Output: Intake & Output 10/17/24 10/18/24 10/19/24 10/20/24 23:59 23:59 23:59 23:59 Intake Total 500 3306 2930 550 Balance 500 3306 2930 550 Meds/Results Medications: Active Medications Generic Name Dose Route Start Last Admin Trade Name Freq PRN Reason Stop Dose Admin Enoxaparin Sodium 40 mg 10/18/24 09:00 10/19/24 08:55 Enoxaparin 40 Mg/0.4 Ml Syringe SUB-Q 40 mg DAILY CELESTINO Administration Linezolid 600 mg 10/19/24 21:00 10/19/24 20:17 Linezolid 600 Mg Tablet PO 600 mg Q12HR CELESTINO Administration Melatonin 5 mg 10/18/24 22:38 10/18/24 23:04 Melatonin 5 Mg Tablet PO 5 mg HS PRN Administration Insomnia Morphine Sulfate 2 mg 10/17/24 21:28 10/19/24 04:39 Morphine Sulfate (*Crx) 2 Mg/Ml Inj IV PUSH 2 mg Q2H PRN Administration Pain Rated 7-10 Radiology Results: ITS Impressions Pelvis CT 10/17/24 21:53 IMPRESSION: No rim-enhancing fluid collection within the area of clinical concern. No abnormality within the underlying musculature or deep soft tissues Labs Labs: Laboratory Results - last 24 hr 10/19/24 07:07 Vancomycin Trough 10.2 Quality VTE Prophylaxis VTE prophylaxis: pharmacologic ordered
[2024-10-20 07:53] LABS: Basophils Percent Auto 0.6 % (0.2-1.2); Eosinophils Absolute Auto 0.1 K/mm3 (0-0.3); Eosinophils Percent Auto 2.1 % (0-4.4); Hematocrit 43.7 % (42.0-52.0); Hemoglobin 14.3 g/dL (14.0-18.0); Immature Granulocyte Absolute 0.06 K/mm3 (0.00-0.031); Immature Granulocyte Percent A 0.9 % (0-0.5); Lymphocytes Absolute Auto 1.11 K/mm3 (0.9-3.2); Lymphocytes Percent Auto 16.6 % (18.3-44.2); Mean Corpuscular HGB Conc 32.7 g/dl (32-36); Mean Corpuscular Hemoglobin 30.3 pg (26-34); Mean Corpuscular Volume 92.6 fl (80-100); Monocytes Absolute Auto 0.6 K/mm3 (0.1-0.6); Monocytes Percent Auto 8.2 % (2.6-8.5); Neutrophils Absolute Auto 4.8 K/mm3 (1.3-6.7); Neutrophils Percent Auto 71.6 % (45.5-73.1); Platelet Count Result 279 k/mm3 (150-375); Red Blood Count 4.72 M/mm3 (4.6-6.20); Red Cell Distribution Width 13.2 % (11.5-14.5); White Blood Count 6.7 K/mm3 (4.5-10.0)
[2024-10-20 08:05] LABS: Alanine Aminotransferase 45 U/L (6-50); Albumin Level 4.1 g/dL (3.5-5.1); Alkaline Phosphatase 73 U/L (38-126); Anion Gap 8 mmol/L (4-12); Aspartate Amino Transferase 42 U/L (17-59); Bilirubin,Total 0.4 mg/dL (0.2-1.3); Blood Urea Nitrogen 8 mg/dL (9-20); Calcium 8.8 mg/dL (8.4-10.2); Carbon Dioxide 28 mmol/L (22-30); Chloride 102 mmol/L (98-107); Estimated CRCL calculation 86 ml/min; Estimated Glomerular Filt Rate > 60; Glucose 94 mg/dL (65-110); Potassium 3.9 mmol/L (3.4-5.0); Sodium 138 mmol/L (137-145)
[2024-10-20] MEDS: LINEZOLID 600 MG TABLET PO (08:51)
[2024-10-20 09:15] VITALS: O2SAT 95
--- NOTE | 2024-10-20 13:04 | PM.PNGS ---
Progress Note: A&P Assessment and Plan (1) Abscess of skin or subcutaneous tissue: Qualifiers: Site of cutaneous abscess: trunk Site of cutaneous abscess of trunk: groin Qualified Code(s): L02.214 - Cutaneous abscess of groin Code(s): L02.91 - Cutaneous abscess, unspecified Status: Acute Assessment and Plan: Wound continues to heal with decreased surrounding erythema and edema. No fever or purulent discharge. Continue daily local wound care and antibiotics per hospitalist orders. Subjective Subjective Date/Time Seen: 10/20/24 13:04 Interval history: Patient is feeling well today with no notable pain. No pain medications given. No fever or other acute events overnight. Exam Const: General: cooperative, comfortable, no acute distress and average body habitus Nutritional Appearance: average body habitus Orientation/consciousness: patient oriented x3 HENMT: Head: normocephalic and atraumatic Ears: hearing grossly normal bilaterally Mouth: Yes moist mucous membranes Eyes: General: appearance normal, both eyes and all related structures Pupils: Equal, round and reactive pupils present Neck: Neck: normal visual inspection and full ROM Resp: Effort & Inspection: no respiratory distress Auscultation: clear to auscultation bilaterally Cardio: Rate: regular rate Rhythm: regular rhythm Peripheral pulses: Peripheral pulses 2+ throughout GI: Inspection: normal to inspection and non-distended Auscultation: normal bowel sounds : Penis: Yes normal penis Scrotum: scrotum normal Testes: Testes normal Skin: General skin exam: normal color Other: L groin - abscess draining well, decreased swelling and cellulitis Neuro: General: patient oriented x3, moves all extremities and no focal motor deficits Cranial nerves: Yes Equal, round and reactive pupils present Speech: normal speech Motor exam (neuro): 5/5 motor strength present throughout Extrem: General: normal to inspection and no edema Psych: Mental Status: mental status grossly normal Attitude: cooperative Insight: Good insight present (Psych) Judgement: Good judgement present (Psych) Objective Data Vital Signs Vital Signs: Vital Signs - 24 hr 10/19/24 14:00 10/19/24 20:00 10/19/24 22:00 Temperature 97.5 F L 98.2 F Pulse Rate 83 86 Respiratory Rate 17 18 Blood Pressure 140/94 H 160/100 H Pulse Oximetry 100 98 Oxygen Delivery Room Air 10/20/24 06:00 10/20/24 08:00 10/20/24 09:15 Temperature 98.1 F Pulse Rate 74 Respiratory Rate 19 Blood Pressure 149/86 H Pulse Oximetry 98 95 Oxygen Delivery Room Air Room Air Intake/Output Intake/Output: Intake & Output 10/17/24 10/18/24 10/19/24 10/20/24 23:59 23:59 23:59 23:59 Intake Total 500 3306 2930 1030 Balance 500 3306 2930 1030 Meds/Results Medications: Active Medications Generic Name Dose Route Start Last Admin Trade Name Freq PRN Reason Stop Dose Admin Enoxaparin Sodium 40 mg 10/18/24 09:00 10/20/24 08:53 Enoxaparin 40 Mg/0.4 Ml Syringe SUB-Q Not Given DAILY CELESTINO Linezolid 600 mg 10/19/24 21:00 10/20/24 08:51 Linezolid 600 Mg Tablet PO 600 mg Q12HR CELESTINO Administration Melatonin 5 mg 10/18/24 22:38 10/18/24 23:04 Melatonin 5 Mg Tablet PO 5 mg HS PRN Administration Insomnia Morphine Sulfate 2 mg 10/17/24 21:28 10/19/24 04:39 Morphine Sulfate (*Crx) 2 Mg/Ml Inj IV PUSH 2 mg Q2H PRN Administration Pain Rated 7-10 Radiology Results: ITS Impressions Pelvis CT 10/17/24 21:53 IMPRESSION: No rim-enhancing fluid collection within the area of clinical concern. No abnormality within the underlying musculature or deep soft tissues Labs Labs: Laboratory Results - last 24 hr 10/20/24 07:37 WBC 6.7 RBC 4.72 Hgb 14.3 Hct 43.7 MCV 92.6 MCH 30.3 MCHC 32.7 RDW 13.2 Plt Count 279 MPV 9.0 Immature Gran % (Auto) 0.9 H Neut % (Auto) 71.6 Lymph % (Auto) 16.6 L [place] % (Auto) 8.2 Eos % (Auto) 2.1 Baso % (Auto) 0.6 Lymph # (Auto) 1.11 [place] # (Auto) 0.6 Eos # (Auto) 0.1 Baso # (Auto) 0.0 Abs Immat Gran (auto) 0.06 H Absolute Neuts (auto) 4.8 Absolute Nucleated RBC 0.000 Nucleated RBC % 0.0 Sodium 138 Potassium 3.9 Chloride 102 Carbon Dioxide 28 Anion Gap 8 BUN 8 L Creatinine 0.93 Estim Creat Clear Calc 86 Estimated GFR > 60 Glucose 94 Calcium 8.8 Total Bilirubin 0.4 AST 42 ALT 45 Alkaline Phosphatase 73 Total Protein 7.0 Albumin 4.1
[2024-10-20 14:00] VITALS: BP 145/94; PULSE 83; RESP 20; TEMP 36; O2SAT 99
--- NOTE | 2024-10-20 14:05 | P.DS_ITS ---
DS: Admitting Diagnosis Discharge Date 10/20/2024 Admitting Diagnosis Abscess of skin or subcutaneous tissue DS: Discharge Diagnosis Discharge Diagnosis (1) Abscess of skin or subcutaneous tissue: Qualifiers: Site of cutaneous abscess: trunk Site of cutaneous abscess of trunk: groin Qualified Code(s): L02.214 - Cutaneous abscess of groin Code(s): L02.91 - Cutaneous abscess, unspecified Status: Acute DS: Summary Hospital Course Reason for hospitalization: Infected insect bite Hospital Course: 59-year-old male with a past medical history of obesity at erectile dysfunction who presented to the ER with complaints of infected bug bite in his left groin. The patient reports that he was out in the garage on the Thursday the whenever he had sudden sensation of being bitten in the left groin. He noticed a small area consistent with an insect bite. The he reported that 2 days later he noticed increased erythema and warmth spreading both to the left side of his groin and into the mons area. He did develop some chills the following day but did not check a temperature. He noted that the area of erythema and warmth continue to worsen. On Thursday he tried to squeeze the area of erythema to see if he could spell any pus. He could not but he did note the increased swelling to the left side as well. He thought about puncture in the area with a needle but wisely held off on doing this. His suggested that he come in to be evaluated but he decided to wait. He went to his primary care provider's office who recommended come into the ER for evaluation. The ER physician did locally I&D the 2 large areas of erythema under ultrasound guidance with small amount of purulent material expressed. Patient was placed on empiric antibiotic therapy with vancomycin. Superficial culture was obtained in the ER. He underwent CT of the pelvis after I&D When the patient arrived to the medical floor at the time my evaluation he had persistent induration. On further palpation of the area acute continued to get moderate amount of purulent fluid drainage. Patient had significant discomfort with palpation area reported the pain as a 9/10 in intensity. After pain medications he reported the pain was down to a 2/10 in intensity. He denies history of prior skin infections or allergic reactions to insect bite. Given the amount of induration and persistent purulence of the area I suspected patient may need more extensive debridement. Patient did consent for recurrent I and D and details listed under procedure note. General surgery consulted regarding this abscess. Upon admission to, patient to 90s connected by Charlie drain. Wound cultures were obtained which showed moderate growth on initial cultures drawn on 10/17 and light growth of Staphylococcus aureus on repeat cultures on 10/18. Upon visualization, wound did not appear to have any purulent drainage or necrotic skin tissue. CT scan the pelvis showed no abscess or findings suggestive of deeper infection. General surgery agreed that likely no further surgical intervention is indicated at this time. Patient was initially initiated on cefepime and vancomycin, but was switched to oral linezolid. General surgery continued to follow patient throughout his hospitalization. Wound appeared he will adequately with 9 significant improvement of overall swelling and erythema. Blood work and vital signs remain unremarkable. No leukocytosis or major electrolyte abnormalities. General surgery ultimately cleared patient for discharge on oral antibiotics with follow-up with Dr. Aggarwal in the outpatient setting in 1 weeks time. Patient is amenable to this plan. Plan for discharge home on oral antibiotics at this time. Status at Discharge Functional status at discharge: independent ambulation Overall status at discharge: patient is back to baseline Time Spent with Patient Time attestation: Total time spent providing and/or coordinating discharge services: 30 Exam Narrative: General - Awake and alert. No acute distress Eyes - PERRLA, EOM intact ENT - No thrush, No erythema Neck - No noticeable or palpable swelling Lymph Nodes - No lymphadenopathy Cardiovascular - RRR no m/r/g, no JVD Lungs: Clear to auscultation, No wheezing, use of accessory muscles, no crackles or wheezes. Skin - Skin warm and dry, Left groin erythema, induration, charlie drain in place, decreased swelling and erythema, no purulence drainage or necrotic tissue Abdomen - Normal bowel sounds, abdomen soft and nontender Extremities - No edema, cyanosis or clubbing Musculoskeletal - 5/5 strength, normal range of motion, no swollen or erythematous joints. Neurological ? Alert and oriented x 3, CN 2-12 grossly intact. Psych: Normal mood and affect Const: Other: Obese, no acute distress HENMT: Other: Mucous membranes are moist, no oral pharyngeal erythema Eyes: Other: Pupils are equal and reactive, no scleral icterus, no conjunctival pallor Neck: Other: No JVD, trachea midline Resp: Other: Clear to auscultation bilaterally anterior lane, no increased work of breathing Cardio: Other: Regular rate, regular rhythm, 2+ bilateral radial pulses GI: Other: Soft, nondistended, nontender, positive bowel sounds Back/Spine/Pelvis: Other: Inguinal lymphadenopathy noted on the left Skin: Other: Left-sided groin abscess, draining adequately with significant decrease in swelling/erythema, no purulent drainage or necrotic tissue. Neuro: Other: Alert oriented, speech is clear, no facial asymmetry Extrem: Other: No clubbing, cyanosis or edema Psych: Other: Appropriate mood and affect, pleasant and cooperative, judgment and insight intact DS: Data Data Completed and Pending Labs on day of discharge: Labs from last 24 hours 10/20/24 07:37 WBC 6.7 RBC 4.72 Hgb 14.3 Hct 43.7 MCV 92.6 MCH 30.3 MCHC 32.7 RDW 13.2 Plt Count 279 MPV 9.0 Immature Gran % (Auto) 0.9 H Neut % (Auto) 71.6 Lymph % (Auto) 16.6 L [place] % (Auto) 8.2 Eos % (Auto) 2.1 Baso % (Auto) 0.6 Lymph # (Auto) 1.11 [place] # (Auto) 0.6 Eos # (Auto) 0.1 Baso # (Auto) 0.0 Abs Immat Gran (auto) 0.06 H Absolute Neuts (auto) 4.8 Absolute Nucleated RBC 0.000 Nucleated RBC % 0.0 Sodium 138 Potassium 3.9 Chloride 102 Carbon Dioxide 28 Anion Gap 8 BUN 8 L Creatinine 0.93 Estim Creat Clear Calc 86 Estimated GFR > 60 Glucose 94 Calcium 8.8 Total Bilirubin 0.4 AST 42 ALT 45 Alkaline Phosphatase 73 Total Protein 7.0 Albumin 4.1 Preliminary micro results at discharge 10/17/24 16:18 Anaerobic Culture - Preliminary Groin 10/18/24 00:49 Anaerobic Culture - Preliminary Groin Aerobic Culture - Preliminary Staphylococcus aureus Discharge Plan Discharge Attending physician on discharge: Marisol Aguila Consulting providers: Angel Juarez Discharging Clinician: Roman Clayton Anticipated Discharge Date/Time: 10/20/24 13:56 Patient Disposition: Home Activity: as tolerated and follow weight bearing status Diet: as tolerated Wound Care Instructions: change dressing daily Discharge Instructions: * Change gauze dressing over left groin wound daily. May shower over incisions. * Call to schedule a follow-up appointment with Dr. Aggarwal in 1 week. 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 Discharge disposition: Stable Take medications as prescribed. You will be prescribed 9 additional doses of Linezolid, starting tonight and you will continue taking this twice daily for the next 4 days. Monitor blood pressures Take caution while standing, rising, or moving Change positions slowly taking a break between each position change If you standing feel dizzy sit back down and take a break Encouraged to continue with yearly vaccinations Return to the emergency department if he developed sudden shortness of breath, chest pain, nausea, vomiting, upset stomach or intractable diarrhea Return to the emergency department if you develop fever greater than 101.5 Follow-up with the primary care physician within 1-2 weeks Thank you for [facility] for your healthcare needs Patient Instructions: Antibiotic Form Patient Language: Swiss Stand Alone Forms: General Discharge Information Follow-up/Referrals: Negra Aggarwal MD [Physician] - 1 Week Discharge Medications: New linezolid 600 mg tablet 600 mg PO Q12H Qty: 9 0RF Continued cholecalciferol (vitamin D3) 1,250 mcg (50,000 unit) capsule 50,000 unit PO WEEKLY testosterone cypionate 200 mg/mL oil 300 mg IM WEEKLY Patient Comments: Takes on Thursday Date of admission: 10/18/24 07:23 Primary Care Provider: GarfieldDick Admitting Provider: Esthela Harley Attending physician on admission: Roman Clayton Condition: Stable Quality VTE Prophylaxis VTE prophylaxis: pharmacologic ordered
== END 2024-10-20 15:27 | disposition home or self-care (01) | DRG 603 ==
LOC: ANHED 21:47 → ANH3MEDSUR 22:27
PROVIDERS: Nurse Practitioner Family; Physician Assistant; Admitting Provider Internal Medicine; Emergency Provider Emergency Medicine; PCP Internal Medicine; Visit Provider Physician Assistant
DX: L02.214 Cutaneous abscess of groin (principal); L03.314 Cellulitis of groin; B95.62 Methicillin resistant Staphylococcus aureus infection as the cause of diseases classified elsewhere; E66.9 Obesity, unspecified
CPT/HCPCS: 10060; 36415; 72193; 80048; 80053; 80202; 82565; 83036; 85025; 85027; 85652; 86140; 87070; 87075; 87181; 87205; 96365; 96374; 96375; 99285; A9270; G0378; J0692; J1171; J1650; J2003; J2270; J3370; Q9967